=== PATIENT | female | born 1950 | race Caucasian/White ===

== ENCOUNTER 2016-12-21 09:10 | Inpatient (IN) ==
--- NOTE | 2016-12-20 21:32 | Discharge Summary ---
<Guilherme,Tamy E - Last Filed: 12/20/16 21:29> Date of Encounter: 12/20/16 - Discharge Diagnosis (1) Rotator cuff tear arthropathy of right shoulder Priority: Primary Status: Chronic (2) Psoriasis Priority: Secondary Status: Chronic (3) GERD (gastroesophageal reflux disease) Priority: Secondary Status: Chronic Qualifiers: Esophagitis presence: esophagitis presence not specified Qualified Code(s) : K21.9 - Gastro-esophageal reflux disease without esophagitis (4) Hyperlipidemia Priority: Secondary Status: Chronic Qualifiers: Hyperlipidemia type: unspecified Qualified Code(s): E78.5 - Hyperlipidemia , unspecified - Discharge Medications Home Medications: Cyclobenzaprine [Flexeril] 10 mg PO TID 03/28/15 [History] Levothyroxine [Synthroid] 12.5 mcg PO DAILY 03/28/15 [History] Esomeprazole Magnesium [Nexium] 20 mg PO BID 12/20/15 [History] Atorvastatin [Lipitor] 10 mg PO HS 08/26/16 [History] hydrOXYzine HCl [Hydroxyzine HCl] 25 mg PO BID PRN 08/26/16 [History] Albuterol Sulfate [Ventolin Hfa] 2 puff IH Q4-6H PRN 12/21/16 [History] Allergies/Adverse Reactions: Allergies hydrocodone [From Vicoprofen] Adverse Reaction (Intermediate, Verified 12/20/15 14:18) Vomiting benzocaine [From Cetacaine] Adverse Reaction (Unknown, Verified 12/20/15 14:18) oral lesion Butamben [From Cetacaine] Adverse Reaction (Unknown, Verified 12/20/15 14:18) oral lesion tetracaine [From Cetacaine] Adverse Reaction (Unknown, Verified 12/20/15 14:18) oral lesion acetaminophen [From Tylenol] Adverse Reaction (Verified 12/20/15 14:18) Vomiting ibuprofen Adverse Reaction (Verified 12/20/15 14:18) Vomiting lansoprazole [From Prevacid] Adverse Reaction (Verified 12/20/15 14:18) Diarrhea tramadol Adverse Reaction (Verified 12/20/15 14:18) Vomiting Primary care physician: Jarad Garcia MD - Patient Status Disposition: Home, Self-Care Condition: Good - Discharge Instructions Follow Up With: Jarad Garcia MD [Primary Care Provider] - - Hospital Course Hospital course: Ms. Snow is a 66 year old female - Time Spent with Patient Total time spent providing and/or coordinating discharge services: - VTE Documentation of Mechanical Device: Venous foot pump, device <Bogdan Virgen - Last Filed: 12/22/16 06:53> Date of Encounter: 12/22/16 Time of Encounter: 06:52 - Discharge Diagnosis (1) Hypothyroidism Priority: Secondary Status: Chronic Qualifiers: Hypothyroidism type: unspecified Qualified Code(s): E03.9 - Hypothyroidism , unspecified (2) Rotator cuff tear arthropathy of right shoulder Priority: Primary Status: Chronic (3) Psoriasis Priority: Secondary Status: Chronic (4) GERD (gastroesophageal reflux disease) Priority: Secondary Status: Chronic Qualifiers: Esophagitis presence: esophagitis presence not specified Qualified Code(s) : K21.9 - Gastro-esophageal reflux disease without esophagitis (5) Status post total replacement of right shoulder Priority: Primary Status: Acute (6) Hyperlipidemia Priority: Secondary Status: Chronic Qualifiers: Hyperlipidemia type: unspecified Qualified Code(s): E78.5 - Hyperlipidemia , unspecified Primary care physician: Jarad Garcia MD - Patient Status Functional capacity at discharge: uses cane/walker Overall status at discharge: patient is progressing back to baseline - Hospital Course Hospital course: Ms. Snow is a 66 year old female Status post right total shoulder replacement The patient had an uneventful postoperative course. They received antibiotics and physical therapy and were discharged in stable condition. There will follow-up in the office in 2 weeks. - Time Spent with Patient Total time spent providing and/or coordinating discharge services:
--- NOTE | 2016-12-20 21:35 | Physician Discharge Referral ---
ExtendedCare Referral Info Transfer To: [facility] Provider in Charge: Dr. Bogdan Virgen Institutional Level of Care: Skilled - Diagnosis (1) Status post total replacement of right shoulder Priority: Primary Status: Acute (2) Rotator cuff tear arthropathy of right shoulder Priority: Secondary Status: Chronic (3) Psoriasis Priority: Secondary Status: Chronic (4) GERD (gastroesophageal reflux disease) Priority: Secondary Status: Chronic (5) Hyperlipidemia Priority: Secondary Status: Chronic Prognosis: Good Aware of Diagnosis: Patient Aware of Prognosis: Patient - Transfer Medications Home Medications: Cyclobenzaprine [Flexeril] 10 mg PO TID 03/28/15 [History] Levothyroxine [Synthroid] 12.5 mcg PO DAILY 03/28/15 [History] Esomeprazole Magnesium [Nexium] 20 mg PO BID 12/20/15 [History] Atorvastatin [Lipitor] 10 mg PO HS 08/26/16 [History] hydrOXYzine HCl [Hydroxyzine HCl] 25 mg PO BID PRN 08/26/16 [History] Albuterol Sulfate [Ventolin Hfa] 2 puff IH Q4-6H PRN 12/21/16 [History] Allergies/Adverse Reactions: Allergies hydrocodone [From Vicoprofen] Adverse Reaction (Intermediate, Verified 12/20/15 14:18) Vomiting benzocaine [From Cetacaine] Adverse Reaction (Unknown, Verified 12/20/15 14:18) oral lesion Butamben [From Cetacaine] Adverse Reaction (Unknown, Verified 12/20/15 14:18) oral lesion tetracaine [From Cetacaine] Adverse Reaction (Unknown, Verified 12/20/15 14:18) oral lesion acetaminophen [From Tylenol] Adverse Reaction (Verified 12/20/15 14:18) Vomiting ibuprofen Adverse Reaction (Verified 12/20/15 14:18) Vomiting lansoprazole [From Prevacid] Adverse Reaction (Verified 12/20/15 14:18) Diarrhea tramadol Adverse Reaction (Verified 12/20/15 14:18) Vomiting - Respiratory Orders Smoking Cessation: Smoking cessation has been advised. For more information, call the [place] Tobacco Quit Line at 1-601-IVNL-NOW. - Ancillary Orders May use pressure relief devices daily prn, May go on JAYESH w/family/respon constitution party w /meds at nurse discretion PRN, May consult with Dentist, Counter Person, Self Contained Behavior Unit Teacher PRN - Rehabiliation Orders Rehab Potential: Good Rehab Orders: Evaluation for Physical Therapy, Evaluation for Occupational Therapy - Treatments Skin tear care topically daily PRN per policy List/Other: Opsite placed. Keep dressing intact until first follow up appointment. If > 50% saturated,notify offfice, remove dressing and place appropriate dressing back in place. Dressing is water resistant, not water-proof. OK to shower, but do not get dressing wet. PT/OT. NWB to affected upper extremity. Follow Shoulder Precautions x 6 weeks. Stay in brace during activity and at night. Remove brace during exercises. ICE and elevate extremity frequently throughout the day. - Diet Orders Regular CERTIFICATION: I certify that the transfer of the above named patient to an Extended Care Facility is necessary for the continuing treatment of the diagnosis listed. The above information is true and accurate reflection of patient's current condition. Confidential - Redisclosure prohibited without a patient's written consent.
--- NOTE | 2016-12-21 09:19 | History & Physical Report ---
Date of Encounter: 12/21/16 Time of Encounter: 09:18 24 Hour HP Update - Instructions Instructions: If the History and Physical is less than 30 days old and was completed prior to A.M. admission and or procedure and has NOT been updated on calendar day of procedure please complete this update prior to performing procedure. - Update Patient reports changes in Medical Condition: No Changes in examination, assessment, or condition: No Changes in Medication: No Preop tests/diagnostics Reviewed: Yes Surgery Remains Indicated: Yes Consent for Planned Operative Procedure(s) Verified: Yes - Pre-Operative Checklist Preoperative Checklist Indicated: No Prophylactic Antibiotic Ordered: Yes Is VTE Prophylaxis Indicated?: Yes
[2016-12-21] MEDS ORDERED: CeFAZolin Pre 2,000 MG/100 ML 2,000 MG/100 ML BAG IVPB ONE (09:34)
[2016-12-21] MEDS ORDERED: Lidocaine -MPF 1% 2 ML VIAL ID ONE (09:34)
[2016-12-21] MEDS ORDERED: Albuterol 2.5 MG/3 ML NEBULIZER IH ONE (09:34)
[2016-12-21] MEDS ORDERED: Famotidine 20 MG/2 ML VIAL IVP ONE (09:36)
[2016-12-21] MEDS ORDERED: Gabapentin 300 MG CAPSULE PO ONE (09:36)
[2016-12-21] MEDS ORDERED: Acetaminophen IV 1,000 MG/100 ML INFUS..BTL IVPB ONE (09:38)
[2016-12-21] MEDS ORDERED: Albuterol 2.5 MG/3 ML NEBULIZER ONE (09:40)
[2016-12-21] MEDS ORDERED: Ringers Solution, Lactated 1,000 ML IVC SCH ×3 (09:45→12:29)
[2016-12-21] MEDS ORDERED: *HR* Midazolam HCl 2 MG/2 ML VIAL ONE (09:56)
[2016-12-21] MEDS ORDERED: *HR* Propofol 200 MG/20 ML VIAL IVP ONE (09:56)
[2016-12-21] MEDS ORDERED: *HR* FentaNYL (PF) 100 MCG/2 ML VIAL ONE (09:56)
[2016-12-21] MEDS ORDERED: Lidocaine -MPF 2% 2 ML VIAL ONE (09:59)
--- NOTE | 2016-12-21 10:10 | Anesthesia Evaluation PreOp ---
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 12/20/15 [Rx] Esomeprazole Magnesium [Nexium] 20 mg PO BID 12/20/15 [History] Atorvastatin [Lipitor] 10 mg PO HS 08/26/16 [History] Bacitracin OINT [Ak-Tracin] 1 appl TP DAILY 08/26/16 [History] Calcipotriene [Dovonex] 1 appl TP BID 08/26/16 [History] Cholecalciferol (D-3) [Vitamin D] 5,000 unit PO DAILY 08/26/16 [History] Clobetasol Propionate [Temovate] 1 appl TP BID 08/26/16 [History] Multivitamin [Multi-Day Vitamins] 1 tab PO DAILY 08/26/16 [History] hydrOXYzine HCl [Hydroxyzine HCl] 25 mg PO TID 08/26/16 [History] OxyCODONE Immed Rel [Roxicodone 5 MG] 5 - 10 mg PO Q6HR PRN #40 tablet 12/20/16 [Rx] Allergies hydrocodone [From Vicoprofen] Adverse Reaction (Intermediate, Verified 12/20/15 14:18) Vomiting benzocaine [From Cetacaine] Adverse Reaction (Unknown, Verified 12/20/15 14:18) oral lesion Butamben [From Cetacaine] Adverse Reaction (Unknown, Verified 12/20/15 14:18) oral lesion tetracaine [From Cetacaine] Adverse Reaction (Unknown, Verified 12/20/15 14:18) oral lesion acetaminophen [From Tylenol] Adverse Reaction (Verified 12/20/15 14:18) Vomiting ibuprofen Adverse Reaction (Verified 12/20/15 14:18) Vomiting lansoprazole [From Prevacid] Adverse Reaction (Verified 12/20/15 14:18) Diarrhea tramadol Adverse Reaction (Verified 12/20/15 14:18) Vomiting - Meds/Allergy Pre-op Review Medications Reviewed: Yes Allergies Reviewed: Yes Beta Blockers on Current Med List: No Anesthesia Results - Labs Laboratory Tests 12/16/16 12/16/16 12:12 12:12 Hgb 12.9 Hct 37.7 Plt Count 298 Sodium 141 Potassium 3.8 BUN 11 Creatinine 0.90 - Imaging EKG: report reviewed (Sinus Tach) Additional studies: Stress Test Negative EF 70% Anesthesia Exam O2 Sat Height 1.61 m Height 1.61 m Height 1.61 m Weight 68.039 kg Weight 68.039 kg Weight 68.039 kg O2 Sat by Pulse Oximetry 99 O2 Sat by Pulse Oximetry 99 O2 Sat by Pulse Oximetry 99 Vital Signs Temp Pulse Resp BP Pulse Ox 97.9 F 100 18 135/77 99 12/21/16 09:23 12/21/16 09:23 12/21/16 09:23 12/21/16 09:23 12/21/16 09:23 Height: 5'3 Weight: 150 lbs NPO (# of Hours): MN Pain Scale: 0 - HEENT Pupil (Motor): Pupils equal, EOMI Mallampati: III Denture Type: Upper: Complete Oral Opening: Less than or equal to 3 - INSIDE SALES ADVISOR LOC: Oriented INSIDE SALES ADVISOR Motor: Normal RUE, Normal LUE, Normal RLE, Normal LLE, Normal Face INSIDE SALES ADVISOR Sensory: Normal: RUE, LUE, RLE, LLE, Face - Cardiac Rhythm: Regular Murmur: None JVD: No Carotid Bruit: No - Pulmonary Breath Sounds: bilateral Clear Respiratory Effort: Symmetrical Anesthesia Assess/Plan ASA Score: 2 Modified Nerissa Scale for Level of Consciousness: Cooperative, oriented, and tranquil Anesthetic Plan: General, Regional Monitoring Plan: Standard Monitors Recovery Plan: PACU (Discussed GA and RA, agrees to proceed)
[2016-12-21] MEDS ORDERED: ROPIVACAINE HCL/PF 0.5% 30 ML VIAL ONE (10:17)
--- NOTE | 2016-12-21 10:47 | Anesthesia Procedures ---
Date of Encounter: 12/21/16 Time of Encounter: 10:24 Procedures: Anesthesia - Nerve Block Procedure Date: 12/21/16 Time: 10:34 Allergies/Adv Reactions: see list Surgical Procedure: right total shoulder Checklist: Correct Patient Identifier, Correct procedure, History checked Correct side: Right Blood Thinner: No Monitor Applied: EKG, BP, Pulse Oximetry Supplemental Oxygen via Nasal Cannula (L/min): 2 Sedation: Versed (mg): 2 Sedation: Fentanyl (mcg): 0 Indication: Post Op Analgesia Block Type: Interscalene, Other (SCP, T2) Catheter placed: No Sterile Technique: Yes Ultrasound used: Yes Anatomy identified: Yes Visual spread of Local: Yes Neuro Stimulation: Yes (0.4) Nerve Stimulator Range: 0.2 - 0.4 mA Blood on Needle Aspiration: No Smooth Injection of Local: Yes Pain with Injection of Local: No Prep: Chlorhexadine Needle: 22 x 50 mm Stimuplex Local: Ropivacaine (15ml 0.5%, 15ml 0.25% bup plain, 5mg decadron), Other Volume (cc): 31 Number of Attempts: 1 Complications: None/effective block Vitals: vss, block per request
[2016-12-21] MEDS ORDERED: Ondansetron 4 MG/2 ML VIAL ONE (11:02)
[2016-12-21] MEDS ORDERED: Dexamethasone 4 MG/ML VIAL ONE (11:02)
[2016-12-21] MEDS ORDERED: *HR* Promethazine 25 MG/ML VIAL IVP PRN (11:16)
--- NOTE | 2016-12-21 11:34 | Orthopedic Operative Note ---
Date of procedure: 12/21/16 Pre-op diagnosis: Right shoulder cuff tear arthropathy Post-op diagnosis: same Procedure: Procedure: Right Total Shoulder Replacment Reverse, Estimated blood loss: 100 cc Hardware: Metal and polyethylene replacement: Arthrex small glenoid baseplate, 2 4.5 screws. 1 6.5 screw, 36+4 glenosphere, 7 humeral stem, poly insert 3 and 6 metal Exam Under anesthesia: Full motion and no instability Procedural Notes: Irreparable tear supraspinatus tendon grade 3 arthritic changes humeral head Operative procedure: The patient was brought to the operating room and placed on the operating room table. After general anesthesia was administered the operative shoulder was examined. Findings were noted. The patient was placed in the modified beachchair position. All pressure points were padded appropriately. And the head was stabilized in the neutral position. The operative extremity was prepped and draped in the sterile surgical fashion. The patient received IV antibiotics prior to skin incision. A standard deltopectoral approach was made to the operative shoulder. Incision was made to the skin and subcutaneous tissue,hemo stasis was obtained with Bovie cautery. Using careful blunt dissection the cephalic vein was identified and mobilized medially. The deltopectoral interval was developed and the clavipectoral fascia was incised. The subscap was released off the lesser tuberosity and tagged with #2 FiberWire suture subscap was irreparable. The humerus was dislocated patient noted to have irreparable tear supraspinatus tendon, and the humeral cut was made along the anatomic neck. Patient noted to have grade 3 changes humeral head. Anterior and posterior Bankart retractors were placed to expose the glenoid. The glenoid guide was seated and the centering hole was made. It was reamed with the appropriate reamer. A small baseplate was seated and secured with (2) 4.5 screws and one 6.5 screw. The baseplate was irrigated and dried and the 36+4 Glenosphere was seated and secured with the Hernandez taper. The Hernandez taper was tested and found to be secure the humerus was redislocated and prepared with the diaphyseal reamers, followed by a broaching process up to the appropriate size 7 in the patient's anatomic version. The metaphyseal reamer was then utilized. Trial reduction found the shoulder to be relocatable. Trial components were removed. The appropriate 7 stem was impacted in place in the patient's anatomic version. Trial reduction found the shoulder to be relocatable and stable with the appropriate 6 metal and 3 Kerline Trial component was removed and the implants were seated and secured shoulder was reduced. The shoulder had excellent motion and excellent stability and no evidence of dislocation. The deep tissue was irrigated with pulse irrigation. The PA closed the shoulder. The deltopectoral interval was closed with a running #1 PDS suture, subcutaneous tissue was irrigated and closed with 0 PDS suture, the skin was closed with Dermabond. The patient was placed in a sterile dressing, abduction brace and extubated. The patient was then transferred to the recovery room in stable condition. Anesthesia: SERA Surgeon: Bogdan Virgen Maori Physiotherapist: Tamy Vanegas Condition: stable Disposition: PACU
[2016-12-21] MEDS ORDERED: *HR* OxyCODONE Immed Rel 5 MG TABLET PO PRN (12:29)
[2016-12-21] MEDS ORDERED: hydrOXYzine pamoate 25 MG CAPSULE PO PRN (12:29)
[2016-12-21] MEDS ORDERED: Naloxone 0.4 MG/ML INJ IVP PRN (12:29)
[2016-12-21] MEDS ORDERED: *HR* HYDROmorphone (PF) 1 MG/ML SYRINGE IVP PRN (12:29)
[2016-12-21] MEDS ORDERED: Sennosides 8.6 MG TABLET PO PRN (12:29)
[2016-12-21] MEDS ORDERED: Ondansetron 4 MG/2 ML VIAL IVP PRN (12:29)
[2016-12-21 12:31] LABS: Hematocrit 36.5 % (35.3-44.9); Hemoglobin 12.2 g/dL (11.5-15.4)
--- NOTE | 2016-12-21 13:38 | Anesthesia Evaluation Post Op ---
Date of Encounter: 12/21/16 Time of Encounter: 13:15 - Vital Signs Vital Signs: Vital Signs/O2 Sat/Glucose, Most Current Temp Pulse Resp BP Pulse Ox 12/21/16 12:27 84 18 116/72 96 12/21/16 12:21 97.2 F L 88 16 127/74 94 12/21/16 12:11 86 18 133/72 96 12/21/16 12:01 85 20 127/89 97 12/21/16 11:51 97.4 F L 91 20 113/90 98 12/21/16 10:44 86 16 138/85 99 12/21/16 10:28 92 16 129/76 100 12/21/16 09:53 18 135/77 99 12/21/16 09:47 97.9 F 100 18 135/77 99 - Lungs Lungs: Clear Ascult./Percussion - Airway Airway: Non-obstructed - Cardiovascular Regular Rate - Mental Status Mental Status: Alert & Oriented, Answers Appropriately - Pain Pain Scale: 0 - Nausea Vomiting Nausea Vomiting: Not Present - Hydration Hydration: Ice chips - Discharge PostOp Status: Transfer Patient to floor
[2016-12-21] MEDS ORDERED: ceFAZolin 2,000 MG in D5% in Water 100 ML IVPB SCH (16:00)
[2016-12-21] MEDS: *HR* Enoxaparin 30 MG/0.3 ML SYRINGE SQ SCH (16:29)
[2016-12-21] MEDS ORDERED: *HR* Enoxaparin 30 MG/0.3 ML SYRINGE SQ SCH (18:00)
[2016-12-21] MEDS: *HR* OxyCODONE Immed Rel 5 MG TABLET PO PRN ×2 (19:42→23:55)
[2016-12-21] MEDS: ceFAZolin 2,000 MG in D5% in Water 100 ML IVPB SCH (20:26)
[2016-12-21] MEDS ORDERED: MOM Conc 10 ML UD.LIQ PO PRN (21:00)
[2016-12-21] MEDS ORDERED: Temazepam 15 MG CAPSULE PO PRN (21:00)
[2016-12-22] MEDS: ceFAZolin 2,000 MG in D5% in Water 100 ML IVPB SCH (03:07)
[2016-12-22] MEDS ORDERED: Levothyroxine 25 MCG TABLET PO SCH (06:30)
[2016-12-22] MEDS: *HR* Enoxaparin 30 MG/0.3 ML SYRINGE SQ SCH (06:52)
--- NOTE | 2016-12-22 06:54 | Orthopedics Progress Note ---
Date of Encounter: 12/22/16 Time of Encounter: 06:53 - Assessment and Plan (1) Hypothyroidism Current Visit: No Status: Chronic Qualifiers: Hypothyroidism type: unspecified Qualified Code(s): E03.9 - Hypothyroidism , unspecified (2) Rotator cuff tear arthropathy of right shoulder Current Visit: Yes Status: Chronic (3) Psoriasis Current Visit: Yes Status: Chronic (4) GERD (gastroesophageal reflux disease) Current Visit: Yes Status: Chronic Qualifiers: Esophagitis presence: esophagitis presence not specified Qualified Code(s) : K21.9 - Gastro-esophageal reflux disease without esophagitis (5) Status post total replacement of right shoulder Current Visit: Yes Status: Acute (6) Hyperlipidemia Current Visit: Yes Status: Chronic Qualifiers: Hyperlipidemia type: unspecified Qualified Code(s): E78.5 - Hyperlipidemia , unspecified Subjective Interval history: Patient was seen this morning doing well without complaints. Afebrile vital signs stable. Operative extremity: Neurovascularly intact Dressing clean dry and intact Calves nontender Assessment and plan: Continue with postoperative care Hematocrit 36 discharged today Objective Vital signs: Vital Signs Temp Pulse Resp BP Pulse Ox 12/22/16 04:09 97.8 F 100 16 143/68 93 12/22/16 00:23 97.9 F 110 16 131/75 94 12/21/16 19:13 97.6 F 116 16 161/73 97 12/21/16 15:32 97.6 F 86 16 137/84 98 12/21/16 14:45 97.6 F 97 14 127/71 98 12/21/16 13:40 97.7 F 93 14 133/71 97 12/21/16 13:10 97.6 F 91 14 137/72 96 12/21/16 12:27 84 18 116/72 96 12/21/16 12:21 97.2 F L 88 16 127/74 94 12/21/16 12:11 86 18 133/72 96 12/21/16 12:01 85 20 127/89 97 12/21/16 11:51 97.4 F L 91 20 113/90 98 12/21/16 10:44 86 16 138/85 99 12/21/16 10:28 92 16 129/76 100 12/21/16 09:53 18 135/77 99 12/21/16 09:47 97.9 F 100 18 135/77 99 12/21/16 09:23 97.9 F 100 18 135/77 99 Intake and Output 12/21/16 12/21/16 12/22/16 15:59 23:59 07:59 Intake Total 100 / 100 100 / 100 Output Total 600 / 600 550 / 550 Balance -500 / -500 -450 / -450 Intake: IV Fluids 100 / 100 100 / 100 Ancef Premix 2,000 MG/100 100 / 100 ML 2,000 mg In 100 ml @ 200 mls/hr IVPB PREOP ONE Rx#:[id number] Ancef 2,000 MG In 100 / 100 Dextrose 5% 100 ML @ 200 mls/hr IVPB Q8H MAURIZIO Rx#: [id number] Oral 0 / 0 Output: Urine 500 / 500 550 / 550 Estimated Blood Loss 100 / 100 Other: # Voids 1 1 Weight 68.039 kg 74.6 kg Patient Weight 12/22/16 23:59 Weight 74.6 kg - Labs CBC & BMP: 12/21/16 12:14 - VTE Documentation of Mechanical Device: Venous foot pump, device Consult Discharge Plan - Plan Referrals: Jarad Garcia MD [Primary Care Provider] -
[2016-12-22 07:15] VITALS: BP 138/91
[2016-12-22 07:35] LABS: Hematocrit 37.5 % (35.3-44.9); Hemoglobin 12.6 g/dL (11.5-15.4)
[2016-12-22] MEDS: *HR* OxyCODONE Immed Rel 5 MG TABLET PO PRN ×2 (08:48→14:27)
[2016-12-22] MEDS ORDERED: Ketorolac 15 MG/ML VIAL IVP ONE (14:37)
[2016-12-22] MEDS ORDERED: Ondansetron 4 MG/2 ML VIAL IVP ONE (14:39)
--- NOTE | 2016-12-22 16:03 | Physician Discharge Referral ---
ExtendedCare Referral Info Transfer To: [facility] Provider in Charge: Dr. Bogdan Virgen Institutional Level of Care: Skilled - Diagnosis (1) Status post total replacement of right shoulder Priority: Primary Status: Acute (2) Rotator cuff tear arthropathy of right shoulder Priority: Secondary Status: Chronic (3) Psoriasis Priority: Secondary Status: Chronic (4) GERD (gastroesophageal reflux disease) Priority: Secondary Status: Chronic (5) Hyperlipidemia Priority: Secondary Status: Chronic Expected Duration of Placement: 30 days Prognosis: Good Aware of Diagnosis: Patient Aware of Prognosis: Patient - Transfer Medications Home Medications: Cyclobenzaprine [Flexeril] 10 mg PO TID 03/28/15 [History] Levothyroxine [Synthroid] 12.5 mcg PO DAILY 03/28/15 [History] Esomeprazole Magnesium [Nexium] 20 mg PO BID 12/20/15 [History] Atorvastatin [Lipitor] 10 mg PO HS 08/26/16 [History] hydrOXYzine HCl [Hydroxyzine HCl] 25 mg PO BID PRN 08/26/16 [History] Albuterol Sulfate [Ventolin Hfa] 2 puff IH Q4-6H PRN 12/21/16 [History] Allergies/Adverse Reactions: Allergies hydrocodone [From Vicoprofen] Adverse Reaction (Intermediate, Verified 12/20/15 14:18) Vomiting benzocaine [From Cetacaine] Adverse Reaction (Unknown, Verified 12/20/15 14:18) oral lesion Butamben [From Cetacaine] Adverse Reaction (Unknown, Verified 12/20/15 14:18) oral lesion tetracaine [From Cetacaine] Adverse Reaction (Unknown, Verified 12/20/15 14:18) oral lesion acetaminophen [From Tylenol] Adverse Reaction (Verified 12/20/15 14:18) Vomiting ibuprofen Adverse Reaction (Verified 12/20/15 14:18) Vomiting lansoprazole [From Prevacid] Adverse Reaction (Verified 12/20/15 14:18) Diarrhea tramadol Adverse Reaction (Verified 12/20/15 14:18) Vomiting - Respiratory Orders Smoking Cessation: Smoking cessation has been advised. For more information, call the [place] Tobacco Quit Line at 9-276-GDUT-NOW. - Ancillary Orders May use pressure relief devices daily prn, May go on JAYESH w/family/respon alliance party w /meds at nurse discretion PRN, May consult with Dentist, Applications Support Engineer, Stroke Belt Sander Operator PRN - Mobility Orders Ambulate - Rehabiliation Orders Rehab Potential: Good Rehab Orders: Evaluation for Physical Therapy, Evaluation for Occupational Therapy CERTIFICATION: I certify that the transfer of the above named patient to an Extended Care Facility is necessary for the continuing treatment of the diagnosis listed. The above information is true and accurate reflection of patient's current condition. Confidential - Redisclosure prohibited without a patient's written consent.
== END 2016-12-22 16:07 | DRG 315 ==
LOC: SAMDAY 09:10 → 3NENU 12:30
PROVIDERS: ADMIT Orthopaedic Surgery; ATTEND Orthopaedic Surgery

== ENCOUNTER 2017-02-08 10:23 | Observation (INO) ==
[2017-02-08 10:55] LABS: Basophils % 0.5 %; Eosinophils # 0.1 K/mcL (0.0-0.6); Eosinophils % 1.3 %; Hematocrit 39.4 % (35.3-44.9); Immature Granulocytes % 0.3 % (0-4); Lymphocytes # 1.8 K/mcL (0.6-4.6); Lymphocytes % 23.4 %; Mean Corpuscular Hemoglobin 29.8 pg (28.0-33.3); Mean Corpuscular Volume 90.4 fL (83.0-100.0); Mean Platelet Volume 9.3 fL (9.4-12.4); Monocytes # 0.3 K/mcL (0.0-1.3); Monocytes % 4.4 %; Neutrophils # 5.3 K/mcL (1.6-8.9); Platelet Count 333 K/mcL (140-400); Red Blood Count 4.36 M/mcL (3.82-4.97); Red Cell Distribution Width 12.9 % (11.5-14.5); Segmented Neutrophils % 70.1 %
[2017-02-08 11:09] LABS: Alanine Aminotransferase 22 Units/L (0-55); Albumin 3.9 g/dL (3.5-5.0); Albumin/Globulin Ratio 1.3 (1.1-2.2); Alkaline Phosphatase 113 Units/L (38-126); Amylase 81 Units/L (25-125); Aspartate Amino Transferase 26 Units/L (5-34); BUN/Creatinine Ratio 11 (6-26); Bilirubin,Direct 0.2 mg/dL (0.0-0.5); Bilirubin,Indirect 0.1 mg/dL (0.0-1.2); Bilirubin,Total 0.3 mg/dL (0.2-1.2); Blood Urea Nitrogen 8 mg/dL (7-20); Calcium 9.9 mg/dL (8.6-10.8); Carbon Dioxide 24 mEq/L (19-29); Chloride 108 mEq/L (98-109); Glucose 130 mg/dL (70-99); Lipase 26 Units/L (8-78); Osmolality,Calculated 294 (280-300); Potassium 3.4 mEq/L (3.5-4.5); Sodium 142 mEq/L (136-145); Total Protein 6.9 g/dL (6.0-8.3); eGFR For African Americans > 60 (> 60); eGFR For Non-African Americans > 60 (> 60)
[2017-02-08] MEDS ORDERED: 0.9 % Sodium Chloride 1,000 ML IVC ONE (11:28)
[2017-02-08] MEDS ORDERED: Ondansetron 4 MG/2 ML VIAL IVP ONE ×2 (11:28→17:15)
[2017-02-08] MEDS ORDERED: *HR* HYDROmorphone (PF) 1 MG/ML SYRINGE IVP ONE (11:28)
--- NOTE | 2017-02-08 11:30 | Emergency Department Note ---
Disposition Clinical Impression: Appendicitis, acute Qualifiers: Acute appendicitis type: unspecified acute appendicitis type Qualified Code(s) : K35.80 - Unspecified acute appendicitis Disposition: Admitted As Inpatient Condition: Good Referrals: NONE,PCP [Primary Care Provider] - Forms: Work/School Release, ED Satisfaction Letter Abdominal Pain HPI - General Chief Complaint: ED Abdominal Pain Stated Complaint: ABD PAIN Time Seen by Provider: 02/08/17 11:03 Source: patient, EMS Mode of arrival: ambulatory Limitations: no limitations Nursing Notes Reviewed: Yes Vital Signs Reviewed: Yes - History of Present Illness Pt Subjective Complaint: abdominal pain Onset (ago): hour(s) (12) Consistency: constant Location: RLQ Pain Scale: 10 Quality: stabbing Radiation: none Migration to: no migration Improves with: nothing Worsens with: nothing Associated symptoms: Reports: nausea (She last ate at 8:30 PM yesterday). Denies: vomiting, fever, chills - Related Data Home Medications Medication Instructions Recorded Confirmed Cyclobenzaprine [Flexeril] 10 mg PO TID 03/28/15 12/21/16 Levothyroxine [Synthroid] 12.5 mcg PO DAILY 03/28/15 12/21/16 Esomeprazole Magnesium [Nexium] 20 mg PO BID 12/20/15 12/21/16 Atorvastatin [Lipitor] 10 mg PO HS 08/26/16 12/21/16 hydrOXYzine HCl [Hydroxyzine HCl] 25 mg PO BID PRN 08/26/16 12/21/16 Albuterol Sulfate [Ventolin Hfa] 2 puff IH Q4-6H PRN 12/21/16 12/21/16 Allergies Allergy/AdvReac Type Severity Reaction Status Date / Time hydrocodone [From Vicoprofen] AdvReac Intermediate Vomiting Verified 12/20/15 14 :18 benzocaine [From Cetacaine] AdvReac Unknown oral lesion Verified 12/20/15 14:18 Butamben [From Cetacaine] AdvReac Unknown oral lesion Verified 12/20/15 14:18 tetracaine [From Cetacaine] AdvReac Unknown oral lesion Verified 12/20/15 14:18 acetaminophen [From Tylenol] AdvReac Vomiting Verified 12/20/15 14:18 ibuprofen AdvReac Vomiting Verified 12/20/15 14:18 lansoprazole [From Prevacid] AdvReac Diarrhea Verified 12/20/15 14:18 tramadol AdvReac Vomiting Verified 12/20/15 14:18 All systems ED: reviewed and negative except as stated. 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 Psychiatric history: Reports: anxiety, depression - Social History Smoking status: Former smoker Alcohol use: Reports: rarely Drug use: Reports: none Physical Exam - General Limitations: no limitations General appearance: alert - Head Head exam: atraumatic, normocephalic, normal inspection - Eye Eye exam: Present: normal appearance, PERRL, EOMI - Expanded Eye Exam Pupils: Left: reactive - ENT ENT exam: normal exam, normal oropharynx, mucous membranes moist - Expanded ENT Exam External ear exam: Present: normal external inspection Mouth exam: Present: normal external inspection Teeth exam: Present: normal inspection Throat exam: Present: normal inspection - Neck Neck exam: Present: normal inspection, full ROM, trachea midline - Chest Chest inspection: Present: normal inspection, symmetric chest wall rise - Respiratory Respiratory exam: Present: normal lung sounds bilaterally - Cardiovascular Cardiovascular exam: Present: regular rate, normal rhythm, normal heart sounds - Abdominal Exam Abdominal exam: Present: soft, guarding. Absent: distention, rebound, rigidity Abdominal tenderness: Present: RLQ, severe - Extremities Exam Extremities exam: Present: normal inspection, full ROM. Absent: tenderness, pedal edema - Expanded Upper Extremity Exam Shoulder exam: Present: normal inspection, full ROM Arm exam: Present: normal inspection, full ROM Elbow exam: Present: normal inspection, full ROM Forearm/Wrist exam: Present: normal inspection, full ROM Hand exam: Present: normal inspection, full ROM Vascular exam: Normal: capillary refill, radial pulse - Expanded Lower Extremity Exam Hip/Pelvis exam: Present: normal inspection, full ROM Upper leg exam: Present: normal inspection, full ROM Knee exam: Present: normal inspection, full ROM Lower leg exam: Present: normal inspection, full ROM Ankle exam: Present: normal inspection, full ROM Foot/toe exam: Present: normal inspection, full ROM Neurovascular/Tendon exam: Absent: motor deficit, sensory deficit, tendon deficit - Back Exam Back exam: Present: normal inspection, full ROM. Absent: tenderness - Neurological Exam Neurological exam: Present: alert, oriented X3 - Expanded Neurological Exam Patient oriented to: Present: person, place, time Coma Scale Eye Opening: Spontaneous Coma Scale Motor Response: Obeys Commands Coma Scale Verbal Response: Oriented Coma Scale Total: 15 - Psychiatric Psychiatric exam: Present: normal affect, normal mood - Skin Skin exam: Present: warm, dry, intact, normal color Course Vital Signs Temperature 97.4 F L 02/08/17 10:27 Pulse Rate 94 02/08/17 10:27 Respiratory Rate 16 02/08/17 10:27 Blood Pressure 131/92 02/08/17 10:27 O2 Sat by Pulse Oximetry 95 02/08/17 10:27 Temperature 97.4 F L 02/08/17 10:27 Pulse Rate 94 02/08/17 10:27 Respiratory Rate 16 02/08/17 10:27 Blood Pressure 131/92 02/08/17 10:27 O2 Sat by Pulse Oximetry 95 02/08/17 10:27 Oxygen Delivery Oxygen Delivery Room Air Abdominal Pain - Medical Records Medical records reviewed: Yes I reviewed the patient's medical records. - Lab Data Lab results reviewed: Yes I reviewed the patient's lab results. Result diagrams: 02/08/17 10:46 02/08/17 10:46 Lab Results 02/08/17 02/08/17 Range/Units 10:46 10:46 WBC 7.6 (4.3-11.1) K/mcL RBC 4.36 (3.82-4.97) M/mcL Hgb 13.0 (11.5-15.4) g/dL Hct 39.4 (35.3-44.9) % MCV 90.4 (83.0-100.0) fL MCH 29.8 (28.0-33.3) pg MCHC 33.0 (31.6-35.5) g/dL RDW 12.9 (11.5-14.5) % Plt Count 333 (140-400) K/mcL MPV 9.3 L (9.4-12.4) fL Immature Gran % 0.3 (0-4) % Seg Neutrophils % 70.1 % Lymphocytes % 23.4 % Monocytes % 4.4 % Eosinophils % 1.3 % Basophils % 0.5 % Neutrophils # 5.3 (1.6-8.9) K/mcL Lymphocytes # 1.8 (0.6-4.6) K/mcL Monocytes # 0.3 (0.0-1.3) K/mcL Eosinophils # 0.1 (0.0-0.6) K/mcL Basophils # 0.0 (0.0-0.2) K/mcL Sodium 142 (136-145) mEq/L Potassium 3.4 L (3.5-4.5) mEq/L Chloride 108 (98-109) mEq/L Carbon Dioxide 24 (19-29) mEq/L BUN 8 (7-20) mg/dL Creatinine 0.75 (0.57-1.11) mg/dL Est GFR ( Amer) > 60 (> 60) Est GFR (Non-Af Amer) > 60 (> 60) BUN/Creatinine Ratio 11 (6-26) Glucose 130 H (70-99) mg/dL Calculated Osmolality 294 (280-300) Calcium 9.9 (8.6-10.8) mg/dL Total Bilirubin 0.3 (0.2-1.2) mg/dL Direct Bilirubin 0.2 (0.0-0.5) mg/dL Indirect Bilirubin 0.1 (0.0-1.2) mg/dL AST 26 (5-34) Units/L ALT 22 (0-55) Units/L Alkaline Phosphatase 113 (38-126) Units/L Serum Total Protein 6.9 (6.0-8.3) g/dL Albumin 3.9 (3.5-5.0) g/dL Globulin 3.0 (2.4-3.5) g/dL Albumin/Globulin Ratio 1.3 (1.1-2.2) Amylase 81 (25-125) Units/L Lipase 26 (8-78) Units/L - Radiology Data Radiology results reviewed: Yes I reviewed the patient's radiology results.
[2017-02-08 13:06] LABS: Bilirubin,Urine Negative (Negative); Blood,Urine Negative (Negative); Clarity,Urine Cloudy (Clear); Color,Urine Yellow (Yellow); Glucose,Urine (UA) Normal (Normal); Ketones,Urine Negative (Negative); Leukocyte Esterase,Urine Moderate (Negative); Nitrite,Urine Negative (Negative); Protein,Urine Negative (Neg-Trace); Specific Gravity,Urine 1.017 (1.010-1.025); Urobilinogen,Urine Normal (Normal)
[2017-02-08 13:08] LABS: Bacteria,Urine None Seen per hpf (None-Few); Hyaline Casts,Urine None Seen per lpf (None-Few); RBC,Urine 0-3 per hpf (0-3); WBC,Urine 0-3 per hpf (0-3)
[2017-02-08 13:29] LABS: Squamous Epithelial Cell,Urine Few per lpf (None-Few)
--- NOTE | 2017-02-08 14:47 | General Surg History&Physical ---
<Audrey Hackett - Last Filed: 02/08/17 14:45> Date of Encounter: 02/08/17 Time of Encounter: 14:30 Assessment and Plan (1) Appendicitis, acute Current Visit: Yes Status: Acute The assessment and plan as outlined above was discussed with the patient and/or family members who expressed understanding and agreement. All questions were answered. Nothing by mouth IV fluids IV antibiotics- Zosyn Supportive care and pain control Risks, benefits, alternatives, expected outcomes have been reviewed with the patient and she is in agreement to proceed to the operating room for laparoscopic appendectomy with Dr. Wheat in the next 24 hours IS every 1 hour while awake Ambulatory hallways 3 times a day PPI therapy daily Qualifiers: Acute appendicitis type: with localized peritonitis Qualified Code(s): K35.3 - Acute appendicitis with localized peritonitis (2) Hypothyroidism Current Visit: No Status: Chronic The assessment and plan as outlined above was discussed with the patient and/or family members who expressed understanding and agreement. All questions were answered. Continue home dose of Synthroid Qualifiers: Hypothyroidism type: unspecified Qualified Code(s): E03.9 - Hypothyroidism , unspecified (3) Anxiety Current Visit: No Status: Chronic The assessment and plan as outlined above was discussed with the patient and/or family members who expressed understanding and agreement. All questions were answered. Continue home dose of hydroxyzine (4) Psoriasis Current Visit: No Status: Chronic The assessment and plan as outlined above was discussed with the patient and/or family members who expressed understanding and agreement. All questions were answered. (5) GERD (gastroesophageal reflux disease) Current Visit: No Status: Chronic The assessment and plan as outlined above was discussed with the patient and/or family members who expressed understanding and agreement. All questions were answered. PPI therapy daily Qualifiers: Esophagitis presence: esophagitis presence not specified Qualified Code(s) : K21.9 - Gastro-esophageal reflux disease without esophagitis (6) Hyperlipidemia Current Visit: No Status: Chronic The assessment and plan as outlined above was discussed with the patient and/or family members who expressed understanding and agreement. All questions were answered. Qualifiers: Hyperlipidemia type: unspecified Qualified Code(s): E78.5 - Hyperlipidemia , unspecified (7) DVT prophylaxis Current Visit: No Status: Acute The assessment and plan as outlined above was discussed with the patient and/or family members who expressed understanding and agreement. All questions were answered. EPCDs to bilateral lateral lower extremities for DVT prophylaxis Ambulate hallways 3 times a day for DVT prophylaxis History of Present Illness Chief complaint: Abdominal pain with associated nausea and vomiting HPI: Ms. Snow is a 66 year old female who presents to the emergency department with complaints of right-sided abdominal pain with associated nausea and vomiting. She states that her pain started at midnight last night and was mild and intermittent. She states that she went to bed and then was awoken at 4:30 this morning with increased right lower quadrant pain which was constant. She states that the pain was followed by diarrhea and multiple episodes of nausea and vomiting. She reports chills and states that she did not check her temperature. She reports multiple episodes of diarrhea but denies any melena or hematochezia. She states that she vomited on multiple occasions but denies any hematemesis or coffee-ground emesis. Denies any difficulty with urination. Denies any shortness of breath or chest pain. She has never experienced any pain like this in the past. She has had a CAT scan which shows evidence of appendicitis. The patient will be admitted to the hospital for further workup and treatment Past Med Surg Social Fam HX - Past Medical History Source: patient Medical history: arthritis, fibromyalgia, GERD, hyperlipidemia, hypertension, thyroid disease (Hypothyroidism), other (Headaches, cervical stenosis, psoriasis , psoriatic arthritis, cervical degenerative disc disease, fibromyalgia, vitamin D deficiency, osteoarthritis) Psychiatric history: anxiety, depression - Past Surgical History Surgical History: breast surgery (right breast excision (benign)), hip replacement (right), knee replacement (left and subsequent revision), orthopedic , other (bilateral shoulder replacements, cervical spine surgery), other (C- section, right salingoectomy) - Social History Smoking Status: Former smoker Smokeless Tobacco Status: No Alcohol use: rarely Drug use: none Current living situation: Home - Independent Activity Level: Independent ambulation - Family History Mother Living Status: Age at : 76 Cause of : kidney failure Hx Family Cardiac Disorders: Yes Hx Family Endocrine Disorder: Yes (diabetes mellitus, kidney failure on dialysis ) Father Adopted: No Living Status: Age at : 83 Hx Family Cardiac Disorders: Yes Hx Family Endocrine Disorder: Yes (Diabetes Mellitus) Medications and Allergies Cyclobenzaprine [Flexeril] 10 mg PO TID 03/28/15 [History] Levothyroxine [Synthroid] 12.5 mcg PO DAILY 03/28/15 [History] Esomeprazole Magnesium [Nexium] 20 mg PO BID 12/20/15 [History] Atorvastatin [Lipitor] 10 mg PO HS 08/26/16 [History] hydrOXYzine HCl [Hydroxyzine HCl] 25 mg PO BID PRN 08/26/16 [History] Albuterol Sulfate [Ventolin Hfa] 2 puff IH Q4-6H PRN 12/21/16 [History] Cholecalciferol (D-3) [Vitamin D] 4,000 unit PO DAILY 02/08/17 [History] 3 Allergy/AdvReac Type Severity Reaction Status Date / Time hydrocodone [From Vicoprofen] AdvReac Intermediate Vomiting Verified 12/20/15 14 :18 benzocaine [From Cetacaine] AdvReac Unknown oral lesion Verified 12/20/15 14:18 Butamben [From Cetacaine] AdvReac Unknown oral lesion Verified 12/20/15 14:18 tetracaine [From Cetacaine] AdvReac Unknown oral lesion Verified 12/20/15 14:18 acetaminophen [From Tylenol] AdvReac Vomiting Verified 12/20/15 14:18 ibuprofen AdvReac Vomiting Verified 12/20/15 14:18 lansoprazole [From Prevacid] AdvReac Diarrhea Verified 12/20/15 14:18 tramadol AdvReac Vomiting Verified 12/20/15 14:18 Review of Systems All systems PM: reviewed and no additional remarkable complaints except as stated (in the HPI) All systems PM: A 10-system review of systems was performed and is negative for pertinent findings except as documented above in the HPI. General Surgery Exam Initial Vital Signs Temp Pulse Resp BP Pulse Ox 97.4 F L 94 16 131/92 95 02/08/17 10:27 02/08/17 10:27 02/08/17 10:27 02/08/17 10:27 02/08/17 10:27 - General physical appearance well developed, well nourished, no distress, moderate pain - Eyes normal ocular movement - ENT normal mucosa, atraumatic, normocephalic - Neck trachea midline - Respiratory normal respiratory effort, clear to auscultation - Cardiovascular Cardiovascular exam: Present: RRR - Abdomen Abdomen general surgery: Present: bowel sounds present, soft, tender Abdominal Tenderness: Present: RLQ - Integumentary Integumentary general surgery: Present: warm and dry, rash (psoriasis) - Neurologic Present: CN 2-12 grossly intact - Musculoskeletal Present: normal gait, normal posture - Psychiatric Psychiatric general surgery: Present: appropriate, oriented to person, oriented to place, oriented to time, speech is normal, memory intact Results - Labs 02/08/17 10:46 02/08/17 10:46 Abnormal lab results MPV 9.3 fL (9.4-12.4) L 02/08/17 10:46 Potassium 3.4 mEq/L (3.5-4.5) L 02/08/17 10:46 Glucose 130 mg/dL (70-99) H 02/08/17 10:46 Urine Clarity Cloudy (Clear) A 02/08/17 13:00 Ur Leukocyte Esterase Moderate (Negative) H 02/08/17 13:00 Ur Culture Indicated? YES (NO) A 02/08/17 13:00 Diabetes panel 02/08/17 Range/Units 10:46 Sodium 142 (136-145) mEq/L Potassium 3.4 L (3.5-4.5) mEq/L Chloride 108 (98-109) mEq/L Carbon Dioxide 24 (19-29) mEq/L BUN 8 (7-20) mg/dL Creatinine 0.75 (0.57-1.11) mg/dL Glucose 130 H (70-99) mg/dL Calcium 9.9 (8.6-10.8) mg/dL AST 26 (5-34) Units/L ALT 22 (0-55) Units/L Alkaline Phosphatase 113 (38-126) Units/L Albumin 3.9 (3.5-5.0) g/dL Calcium panel 02/08/17 Range/Units 10:46 Calcium 9.9 (8.6-10.8) mg/dL Albumin 3.9 (3.5-5.0) g/dL Pituitary panel 02/08/17 Range/Units 10:46 Sodium 142 (136-145) mEq/L Potassium 3.4 L (3.5-4.5) mEq/L Chloride 108 (98-109) mEq/L Carbon Dioxide 24 (19-29) mEq/L BUN 8 (7-20) mg/dL Creatinine 0.75 (0.57-1.11) mg/dL Glucose 130 H (70-99) mg/dL Calcium 9.9 (8.6-10.8) mg/dL Adrenal panel 02/08/17 Range/Units 10:46 Sodium 142 (136-145) mEq/L Potassium 3.4 L (3.5-4.5) mEq/L Chloride 108 (98-109) mEq/L Carbon Dioxide 24 (19-29) mEq/L BUN 8 (7-20) mg/dL Creatinine 0.75 (0.57-1.11) mg/dL Glucose 130 H (70-99) mg/dL Calcium 9.9 (8.6-10.8) mg/dL Total Bilirubin 0.3 (0.2-1.2) mg/dL AST 26 (5-34) Units/L ALT 22 (0-55) Units/L Alkaline Phosphatase 113 (38-126) Units/L Albumin 3.9 (3.5-5.0) g/dL All other labs normal. - Imaging CT scan - abdomen: report reviewed CT scan - pelvis: report reviewed Additional studies: Abdomen/Pelvis CT 02/08/17 11:42 IMPRESSION: 1. Distended hyperemic appendix, measuring up to 9 mm in diameter with mild periappendiceal stranding/inflammation. Please correlate with clinical symptoms as this may represent an early appendicitis. D/ / 02/08/2017 13:30:41 Foreign Pak MD / bcarter Interpreting Provider: Foreign Pak MD - Attending Attestation For this encounter, I have reviewed the FUSE CUTTER or PA documentation, treatment plan, and medical decision making; and I have had face to face time with this patient. <Estefany Wheat - Last Filed: 02/08/17 17:52> Date of Encounter: 02/08/17 Assessment and Plan (1) Appendicitis, acute Current Visit: Yes Status: Acute The assessment and plan as outlined above was discussed with the patient and/or family members who expressed understanding and agreement. All questions were answered. Qualifiers: Acute appendicitis type: with localized peritonitis Qualified Code(s): K35.3 - Acute appendicitis with localized peritonitis History of Present Illness HPI: Ms. Snow is a 66 year old female Review of Systems All systems PM: A 10-system review of systems was performed and is negative for pertinent findings except as documented above in the HPI. General Surgery Exam Initial Vital Signs Temp Pulse Resp BP Pulse Ox 97.4 F L 94 16 131/92 95 02/08/17 10:27 02/08/17 10:27 02/08/17 10:27 02/08/17 10:27 02/08/17 10:27 Results - Labs 02/08/17 10:46 02/08/17 10:46 Abnormal lab results MPV 9.3 fL (9.4-12.4) L 02/08/17 10:46 Potassium 3.4 mEq/L (3.5-4.5) L 02/08/17 10:46 Glucose 130 mg/dL (70-99) H 02/08/17 10:46 Urine Clarity Cloudy (Clear) A 02/08/17 13:00 Ur Leukocyte Esterase Moderate (Negative) H 02/08/17 13:00 Ur Culture Indicated? YES (NO) A 02/08/17 13:00 All other labs normal. - Attending Attestation I have personally performed a face to face evaluation on this patient. I have reviewed and agree with the care plan. History and Exam by me shows:
--- NOTE | 2017-02-08 15:25 | Anesthesia Evaluation PreOp ---
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 Other Medical History: Thyroid (hypothyroid), GERD, Other (anxiety, psoriasis) Anesthesia History: No Prior Anesthetic Complications, Past Anesthesia (right KAM, left TKA, right TSA (done 12/28), left TSA, tubla, C-spine, breast excision) : No Alcohol Use: rarely Drug use: none Medications and Allergies Cyclobenzaprine [Flexeril] 10 mg PO TID 03/28/15 [History] Levothyroxine [Synthroid] 12.5 mcg PO DAILY 03/28/15 [History] Esomeprazole Magnesium [Nexium] 20 mg PO BID 12/20/15 [History] Atorvastatin [Lipitor] 10 mg PO HS 08/26/16 [History] hydrOXYzine HCl [Hydroxyzine HCl] 25 mg PO BID PRN 08/26/16 [History] Albuterol Sulfate [Ventolin Hfa] 2 puff IH Q4-6H PRN 12/21/16 [History] Cholecalciferol (D-3) [Vitamin D] 4,000 unit PO DAILY 02/08/17 [History] 3 Allergy/AdvReac Type Severity Reaction Status Date / Time hydrocodone [From Vicoprofen] AdvReac Intermediate Vomiting Verified 12/20/15 14 :18 benzocaine [From Cetacaine] AdvReac Unknown oral lesion Verified 12/20/15 14:18 Butamben [From Cetacaine] AdvReac Unknown oral lesion Verified 12/20/15 14:18 tetracaine [From Cetacaine] AdvReac Unknown oral lesion Verified 12/20/15 14:18 acetaminophen [From Tylenol] AdvReac Vomiting Verified 12/20/15 14:18 ibuprofen AdvReac Vomiting Verified 12/20/15 14:18 lansoprazole [From Prevacid] AdvReac Diarrhea Verified 12/20/15 14:18 tramadol AdvReac Vomiting Verified 12/20/15 14:18 - Meds/Allergy Pre-op Review Medications Reviewed: Yes Allergies Reviewed: Yes Beta Blockers on Current Med List: No Anesthesia Results - Labs 02/08/17 10:46 02/08/17 10:46 - Imaging Additional studies: negative stress with EF 70% Anesthesia Exam Selected Entries 02/08/17 14:25 02/08/17 15:07 Pulse Rate 103 Respiratory Rate 18 Blood Pressure 114/56 O2 Sat by Pulse Oximetry 99 Height: 63in Weight: 150lbs - HEENT Pupil (Motor): EOMI Mallampati: III Teeth: Edentulous (upper) Oral Opening: Less than or equal to 3 - PROFESSOR OF SURGERY LOC: Oriented PROFESSOR OF SURGERY Motor: Normal RUE, Normal LUE, Normal RLE, Normal LLE, Normal Face PROFESSOR OF SURGERY Sensory: Normal: RUE, LUE, RLE, LLE, Face - Cardiac Rhythm: Regular Murmur: None - Pulmonary Breath Sounds: bilateral Clear Respiratory Effort: Symmetrical Anesthesia Assess/Plan ASA Score: 3 Modified Westwood Scale for Level of Consciousness: Cooperative, oriented, and tranquil Anesthetic Plan: General Monitoring Plan: Standard Monitors Recovery Plan: PACU (discussed risks of GA, questions answered and agrees to proceed.)
[2017-02-08] MEDS ORDERED: Piperacillin/Tazobactam 3.375 GM in D5% in Water (Mini-Bag+) 100 ML IVPB SCH (16:00)
[2017-02-08] MEDS ORDERED: *HR* Propofol 200 MG/20 ML VIAL IVP ONE (16:36)
[2017-02-08] MEDS ORDERED: *HR* Succinylcholine 200 MG/10 ML VIAL IVP ONE (16:36)
[2017-02-08] MEDS ORDERED: Lidocaine -MPF 4% 5 ML AMPUL ONE (16:36)
[2017-02-08] MEDS ORDERED: *HR* Midazolam HCl 2 MG/2 ML VIAL ONE (16:36)
[2017-02-08] MEDS ORDERED: Lidocaine -MPF 2% 2 ML VIAL ONE (16:36)
[2017-02-08] MEDS ORDERED: *HR* FentaNYL (PF) 100 MCG/2 ML VIAL ONE (16:36)
[2017-02-08] MEDS ORDERED: *HR* Rocuronium Bromide 50 MG/5 ML VIAL ONE (16:36)
[2017-02-08] MEDS ORDERED: *HR* Promethazine 25 MG/ML VIAL IVP PRN (17:15)
[2017-02-08] MEDS ORDERED: *HR* HYDROmorphone (PF) 1 MG/ML SYRINGE IVP PRN (17:15)
[2017-02-08] MEDS ORDERED: Ondansetron 4 MG/2 ML VIAL ONE (17:17)
[2017-02-08] MEDS ORDERED: Dexamethasone 4 MG/ML VIAL ONE (17:17)
[2017-02-08] MEDS ORDERED: *HR* Labetalol 20 MG/4 ML SYRINGE IVP ONE (17:28)
[2017-02-08] MEDS ORDERED: Neostigmine Methylsulfate 3 MG/3 ML SYRINGE ONE (17:46)
--- NOTE | 2017-02-08 17:50 | Operative Note ---
Date of procedure: 02/08/17 Pre-op diagnosis: acute appendicitis Post-op diagnosis: same Procedure: Laparoscopic appendectomy Complications: none immediate Anesthesia: GETA, local Local Anesthetics: 0.5% Sensorcaine HCL SubQ (cc) Surgeon: Estefany Wheat Estimated blood loss (cc): 20 Specimen: appendix Condition: stable Disposition: PACU Procedure in Detail: The patient was brought into the operating suite and placed supine on the operating table. Sign-in was performed and everyone was in agreement. Anesthesia was induced and patient was endotracheally intubated by anesthesia without incident. An OG tube was placed by anesthesia. The abdomen was prepped and draped in the usual sterile fashion. A timeout was performed and again everyone was in agreement. A supraumbilical incision was made through the skin and the subcutaneous tissue with an 11 blade. Towel clamps were placed on either side of the umbilicus for retraction. S-retractors were used to dissect down to the anterior abdominal wall linea alba fascia. A Veress needle was placed into this incision and a water drop test confirmed placement and the abdomen was insufflated. We then entered the abdomen with the 5 mm 0 degree laparoscope on a 5 mm X-seven trocar. The area under entry was visualized and there was no bleeding and no apparent bowel injury. We placed a suprapubic 5 mm port under direct visualization after first incising the skin with an 11 blade. The laparoscope was placed through this and we exchanged the supraumbilical port for a 12 mm port under direct visualization. We then placed another 5 mm port in the left lower quadrant position under direct visualization after first incising the skin with an 11 blade. The patient was placed in slight Trendelenburg left side down position. The cecum was located as was the appendix. The appendix was grasped and retracted anteriorly and caudally with a laparoscopic [place]. A [place] was used to dissect between the mesoappendix and the appendix at the base of the cecum. The mesoappendix was transected with a laparoscopic flex-ex ETS stapler using a white load. The appendix was transected at the base of the cecum with the same stapler utilizing a white load. The appendix was placed in a laparoscopic Endo Catch bag and removed via the supraumbilical incision site. Both staple lines were evaluated and there was bleeding from the mesoappendix staple line and an area of retroperitoneaum ~1cm below staple line. This stopped after one 5mm metal hemoclip was placed and surgicel against the site. The surgicel was then removed and a small piece trimmed (~2cm) and placed at the site of previous bleeding. The area was irrigated with sterile saline which was then suctioned free from the abdomen. The insufflation was suctioned free from the abdomen and all trochars removed. We closed the abdominal wall at the supraumbilical incision site with an 0 Vicryl [id number] stitch. A 30 cc of 0.5% Marcaine was injected subcutaneously at the 3 port sites. The skin at the two 5 mm port sites was closed with 4-0 Monocryl interrupted subcuticular stitches. The skin at the supraumbilical incision site was closed with a 4-0 Monocryl running subcuticular stitch. Steri-Strips were applied to the wounds. The patient was extubated in the OR and tolerated the procedure well and was taken to PACU after all lap and instrument counts were correct at the end of the case.
[2017-02-08] MEDS ORDERED: Famotidine 20 MG/2 ML VIAL IVP SCH (18:00)
--- NOTE | 2017-02-08 19:05 | Anesthesia Evaluation Post Op ---
Date of Encounter: 02/08/17 Time of Encounter: 19:05 - Vital Signs Vital Signs: Last Vital Signs Temp 97.4 F L 02/08/17 18:54 Pulse 54 02/08/17 18:54 Resp 16 02/08/17 18:54 BP 146/75 02/08/17 18:54 Pulse Ox 99 02/08/17 18:54 - Lungs Lungs: Clear Ascult./Percussion - Airway Airway: Non-obstructed - Cardiovascular Regular Rate - Mental Status Mental Status: Alert & Oriented, Answers Appropriately - Pain Pain Scale: 5 - Nausea Vomiting Nausea Vomiting: Not Present - Hydration Hydration: NPO - Discharge PostOp Status: Transfer Patient to floor
[2017-02-08] MEDS ORDERED: *HR* OxyCODONE/APAP 5/325 TABLET PO PRN (19:25)
[2017-02-08] MEDS ORDERED: 0.9 % Sodium Chloride 1,000 ML IVC SCH (19:25)
[2017-02-08] MEDS ORDERED: Naloxone 0.4 MG/ML INJ IVP PRN (19:25)
[2017-02-08] MEDS: *HR* Promethazine 25 MG/ML VIAL IVP PRN (19:40)
[2017-02-08] MEDS: *HR* HYDROmorphone (PF) 1 MG/ML SYRINGE IVP PRN (19:40)
[2017-02-08] MEDS: Ipratropium/Albuterol Neb 3 ML IH SCH (20:52)
[2017-02-08] MEDS: 0.9 % Sodium Chloride 1,000 ML IVC SCH (21:48)
[2017-02-08] MEDS: Pantoprazole 40 MG VIAL IVP SCH (21:48)
[2017-02-08] MEDS: *HR* OxyCODONE Immed Rel 5 MG TABLET PO PRN (22:47)
[2017-02-09] MEDS ORDERED: Piperacillin/Tazobactam 3.375 GM in D5% in Water (Mini-Bag+) 100 ML IVPB SCH
[2017-02-09] MEDS: Ipratropium/Albuterol Neb 3 ML IH SCH ×7 (00:14→23:47)
[2017-02-09] MEDS: Ondansetron 4 MG/2 ML VIAL IVP PRN ×3 (00:15→09:16)
[2017-02-09] MEDS: *HR* HYDROmorphone (PF) 1 MG/ML SYRINGE IVP PRN ×4 (00:17→21:13)
[2017-02-09] MEDS: *HR* Promethazine 25 MG/ML VIAL IVP PRN ×2 (02:33→21:00)
[2017-02-09 04:35] LABS: Basophils % 0.1 %; Hematocrit 38.8 % (35.3-44.9); Hemoglobin 12.7 g/dL (11.5-15.4); Immature Granulocytes % 0.3 % (0-4); Lymphocytes # 1.4 K/mcL (0.6-4.6); Mean Corpuscular HGB Conc 32.7 g/dL (31.6-35.5); Mean Corpuscular Hemoglobin 29.3 pg (28.0-33.3); Mean Corpuscular Volume 89.6 fL (83.0-100.0); Mean Platelet Volume 9.4 fL (9.4-12.4); Monocytes # 0.2 K/mcL (0.0-1.3); Monocytes % 3.1 %; Neutrophils # 6.1 K/mcL (1.6-8.9); Platelet Count 358 K/mcL (140-400); Red Blood Count 4.33 M/mcL (3.82-4.97); Red Cell Distribution Width 13.2 % (11.5-14.5); Segmented Neutrophils % 78.5 %
[2017-02-09 04:50] LABS: BUN/Creatinine Ratio 10 (6-26); Blood Urea Nitrogen 7 mg/dL (7-20); Calcium 9.2 mg/dL (8.6-10.8); Carbon Dioxide 22 mEq/L (19-29); Chloride 107 mEq/L (98-109); Glucose 140 mg/dL (70-99); Osmolality,Calculated 286 (280-300); Potassium 3.7 mEq/L (3.5-4.5); Sodium 138 mEq/L (136-145); eGFR For African Americans > 60 (> 60); eGFR For Non-African Americans > 60 (> 60)
[2017-02-09] MEDS: Levothyroxine 25 MCG TABLET PO SCH (06:34)
[2017-02-09] MEDS: Pantoprazole 40 MG VIAL IVP SCH ×2 (08:01→21:00)
[2017-02-09] MEDS: 0.9 % Sodium Chloride 1,000 ML IVC SCH ×2 (08:01→17:27)
--- NOTE | 2017-02-09 09:51 | Discharge Summary ---
<Estefany Wheat - Last Filed: 02/09/17 09:48> Date of Encounter: 02/09/17 Time of Encounter: 09:49 - Discharge Diagnosis (1) Appendicitis, acute Priority: Primary Status: Acute Qualifiers: Acute appendicitis type: with localized peritonitis Qualified Code(s): K35.3 - Acute appendicitis with localized peritonitis - Discharge Medications Prescriptions: OxyCODONE ER (12 HR) [OxyCONTIN] 10 mg PO Q12HR #14 tab.er.12h Docusate Sodium [Colace] 100 mg PO BID #30 capsule Ibuprofen 800 mg PO Q8H PRN #60 tablet PRN Reason: Pain Ondansetron ODT [Zofran ODT] 4 mg PO Q4H PRN #30 tab.rapdis PRN Reason: Nausea Home Medications: Cyclobenzaprine [Flexeril] 10 mg PO TID 03/28/15 [History] Levothyroxine [Synthroid] 12.5 mcg PO DAILY 03/28/15 [History] Esomeprazole Magnesium [Nexium] 20 mg PO BID 12/20/15 [History] Atorvastatin [Lipitor] 10 mg PO HS 08/26/16 [History] hydrOXYzine HCl [Hydroxyzine HCl] 25 mg PO BID PRN 08/26/16 [History] Albuterol Sulfate [Ventolin Hfa] 2 puff IH Q4-6H PRN 12/21/16 [History] Cholecalciferol (D-3) [Vitamin D] 4,000 unit PO DAILY 02/08/17 [History] Docusate Sodium [Colace] 100 mg PO BID #30 capsule 02/10/17 [Rx] Ibuprofen 800 mg PO Q8H PRN #60 tablet 02/10/17 [Rx] Ondansetron ODT [Zofran ODT] 4 mg PO Q4H PRN #30 tab.rapdis 02/10/17 [Rx] OxyCODONE ER (12 HR) [OxyCONTIN] 10 mg PO Q12HR #14 tab.er.12h 02/10/17 [Rx] Allergies/Adverse Reactions: 3 Allergy/AdvReac Type Severity Reaction Status Date / Time hydrocodone [From Vicoprofen] AdvReac Intermediate Vomiting Verified 12/20/15 14 :18 benzocaine [From Cetacaine] AdvReac Unknown oral lesion Verified 12/20/15 14:18 Butamben [From Cetacaine] AdvReac Unknown oral lesion Verified 12/20/15 14:18 tetracaine [From Cetacaine] AdvReac Unknown oral lesion Verified 12/20/15 14:18 acetaminophen [From Tylenol] AdvReac Vomiting Verified 12/20/15 14:18 ibuprofen AdvReac Vomiting Verified 12/20/15 14:18 lansoprazole [From Prevacid] AdvReac Diarrhea Verified 12/20/15 14:18 tramadol AdvReac Vomiting Verified 12/20/15 14:18 General Surgery Exam Initial Vital Signs Temp Pulse Resp BP Pulse Ox 97.4 F L 94 16 131/92 95 02/08/17 10:27 02/08/17 10:27 02/08/17 10:27 02/08/17 10:27 02/08/17 10:27 - General physical appearance well developed, well nourished, no distress - Eyes PERRL, normal ocular movement - ENT normal mucosa, normocephalic - Neck trachea midline - Respiratory normal expansion, normal respiratory effort - Cardiovascular Cardiovascular exam: Present: RRR - Abdomen Abdomen general surgery: Present: bowel sounds present, soft, tender ( appropriate post op tenderness) - Incision Incision: Present: clean and dry, intact - Integumentary Integumentary general surgery: Present: warm and dry - Neurologic Present: CN 2-12 grossly intact - Musculoskeletal Present: normal gait, normal posture - Psychiatric Psychiatric general surgery: Present: A&Ox3, speech is normal Date of admission: 02/08/17 14:34 Primary care physician: PCP NONE Discharging clinician: Estefany Wheat Anticipated date of discharge: 02/09/17 - Patient Status Disposition: Home, Self-Care Condition: Good Overall status at discharge: patient is progressing back to baseline - Discharge Instructions Instructions: Laparoscopic Appendectomy (DC) Follow Up With: NONE,PCP [Primary Care Provider] - Estefany Wheat MD [Partnered Physician] - 02/25/17 9:55 am Additional Instructions: As we reviewed, vomiting is not a true allergy to ibuprofen and you are agreeable to trying ibuprofen 800 mg every 8 hours at home. Remember to take your Zofran and eat a small meal prior to taking ibuprofen or any pain medication. no lifting more than 20 lbs for 2 weeks ok to shower, no tub baths or pools for 1 week no driving until off narcotics and able to react safely ok to use ice packs - on 20 minutes./off 20 minutes - Diet and Activity Activity: increase activity as tolerated Diet: diabetic diet - Hospital Course Hospital course: Ms. Snow is a 66 year old female admitted with acute appendicitis. She underwent an uncomplicated laparoscopic appendectomy. She was started on clears and advanced. Pain initially controlled with iv was transitioned to po. She was up ambulating having appropriate bladder function. She was discharged home in stable condition. - Time Spent with Patient Total time spent providing and/or coordinating discharge services: Labs on day of discharge: Labs from last 24 hours 02/09/17 02/09/17 02/09/17 05:20 04:06 04:06 WBC 7.7 RBC 4.33 Hgb 12.7 Hct 38.8 MCV 89.6 MCH 29.3 MCHC 32.7 RDW 13.2 Plt Count 358 MPV 9.4 Immature Gran % 0.3 Seg Neutrophils % 78.5 Lymphocytes % 18.0 Monocytes % 3.1 Eosinophils % 0.0 Basophils % 0.1 Neutrophils # 6.1 Lymphocytes # 1.4 Monocytes # 0.2 Eosinophils # 0.0 Basophils # 0.0 Sodium 138 Potassium 3.7 Chloride 107 Carbon Dioxide 22 BUN 7 Creatinine 0.73 Est GFR ( Amer) > 60 Est GFR (Non-Af Amer) > 60 BUN/Creatinine Ratio 10 Glucose 140 H POC Glucose 125 H Calculated Osmolality 286 Calcium 9.2 02/09/17 00:25 WBC RBC Hgb Hct MCV MCH MCHC RDW Plt Count MPV Immature Gran % Seg Neutrophils % Lymphocytes % Monocytes % Eosinophils % Basophils % Neutrophils # Lymphocytes # Monocytes # Eosinophils # Basophils # Sodium Potassium Chloride Carbon Dioxide BUN Creatinine Est GFR ( Amer) Est GFR (Non-Af Amer) BUN/Creatinine Ratio Glucose POC Glucose 132 H Calculated Osmolality Calcium <Mi Garcia L - Last Filed: 02/10/17 11:25> Date of Encounter: 02/10/17 Time of Encounter: 10:30 - Discharge Diagnosis (1) Appendicitis, acute Priority: Primary Status: Resolved Qualifiers: Acute appendicitis type: with localized peritonitis Qualified Code(s): K35.3 - Acute appendicitis with localized peritonitis (2) Nausea & vomiting Priority: Secondary Status: Resolved Qualifiers: Vomiting type: unspecified Vomiting Intractability: intractable Qualified Code(s): R11.2 - Nausea with vomiting, unspecified (3) DVT prophylaxis Priority: Secondary Status: Resolved (4) GERD (gastroesophageal reflux disease) Priority: Secondary Status: Chronic Qualifiers: Esophagitis presence: esophagitis presence not specified Qualified Code(s) : K21.9 - Gastro-esophageal reflux disease without esophagitis General Surgery Exam Initial Vital Signs Temp Pulse Resp BP Pulse Ox 97.4 F L 94 16 131/92 95 02/08/17 10:27 02/08/17 10:27 02/08/17 10:27 02/08/17 10:27 02/08/17 10:27 - General physical appearance well developed, well nourished, no distress - Neck no masses, no bruits, trachea midline, no lymphadectomy, no venous distension - Respiratory normal expansion, normal respiratory effort, clear to percussion, clear to auscultation - Cardiovascular Cardiovascular exam: Present: RRR, 15, 16 - Abdomen Abdomen general surgery: Present: bowel sounds present, soft, non tender - Incision Incision: Present: clean and dry, intact - Neurologic Present: CN 2-12 grossly intact, normal coordination, normal sensation - Musculoskeletal Present: normal gait, normal posture - Psychiatric Psychiatric general surgery: Present: A&Ox3, appropriate, oriented to person, oriented to place, oriented to time, speech is normal, memory intact Date of admission: 02/08/17 14:34 Primary care physician: PCP NONE Discharging clinician: Estefany Garcia) Anticipated date of discharge: 02/10/17 - Patient Status Functional capacity at discharge: independent ambulation Overall status at discharge: patient is progressing back to baseline - Diet and Activity Activity: increase activity as tolerated Diet: advance to your usual diet - Hospital Course Hospital course: See above for further HPI. Her hospital course was complicated by postoperative nausea and vomiting. Scopolamine patch and increased anti- Imitrex were added which results her symptoms. She will be discharged home with Zofran, ibuprofen (although she list a minor allergy including vomiting with ibuprofen), and oxycodone ER. She is recommended to eat a small meal and take Zofran prior to medication with ibuprofen to reduce the chance of vomiting. She has also encouraged to eat a small meal prior to taking any medication. She is waiting in ambulating without difficulty. She is tolerating a full liquid diet and will be discharged charged likely this afternoon. - Time Spent with Patient Total time spent providing and/or coordinating discharge services:
[2017-02-09] MEDS ORDERED: Scopolamine Patch 1.5 MG PATCH.TD72 TD ONE (10:37)
--- NOTE | 2017-02-09 11:47 | General Surgery Progress Note ---
<Mi Garcia - Last Filed: 02/09/17 12:42> Date of Encounter: 02/09/17 Time of Encounter: 11:30 - Assessment and Plan (1) Appendicitis, acute Current Visit: Yes Status: Acute POD 1 (02/08/2017 Dr. Wheat) laproscopic appendectomy -Reports nausea and vomiting -Unable to tolerate liquids, suspect post-anesthesia n/v vs ileus Do not advance diet if vomiting +Normoactive bowel sounds -Add scopolamine patch, continue zofran and promethazine Will add one additional dose of Zofran, now -Continue PPI prophylaxis -Normal WBC, creatinine, and hgb at this time -D/c planning in the next 24-48 hours pending clinical course Qualifiers: Acute appendicitis type: with localized peritonitis Qualified Code(s): K35.3 - Acute appendicitis with localized peritonitis (2) Nausea & vomiting Current Visit: Yes Status: Acute See plan above Qualifiers: Vomiting type: unspecified Vomiting Intractability: intractable Qualified Code(s): R11.2 - Nausea with vomiting, unspecified (3) DVT prophylaxis Current Visit: Yes Status: Acute SCDs while in bed Ambulate as tolerated Heparin 5000 units SQ injections Q8H (4) GERD (gastroesophageal reflux disease) Current Visit: Yes Status: Chronic See plan above Qualifiers: Esophagitis presence: esophagitis presence not specified Qualified Code(s) : K21.9 - Gastro-esophageal reflux disease without esophagitis Subjective Patient reports: pain is less, voiding w/o difficulty, no flatus, no bowel movement, nausea, vomiting, afebrile Objective Vital Signs - Last 8 Hours Temp Pulse Resp BP Pulse Ox 02/09/17 11:19 16 100 02/09/17 10:29 97.4 F L 92 15 126/75 98 02/09/17 08:07 98 02/09/17 06:46 97.6 F 88 16 134/77 98 02/09/17 04:15 97.5 F L 90 18 123/65 99 Intake and Output 02/08/17 02/09/17 02/09/17 23:59 07:59 15:59 Intake Total 1100 / 1100 0 / 0 Output Total 420 / 420 500 / 500 400 / 400 Balance -420 / -420 600 / 600 -400 / -400 Intake: IV Fluids 1100 / 1100 0.9 % Sodium Chloride 1, 1000 / 1000 000 ML @ 100 mls/hr IVC . Q10H [facility] Rx#:[id number] Zosyn 3.375 GM In 100 / 100 Dextrose 5% (Minibag+) 100 ML 100 ML @ 25 mls/hr IVPB Q8HR [facility] Rx#: [id number] Oral 0 / 0 0 / 0 Output: Urine 400 / 400 350 / 350 400 / 400 Emesis 150 / 150 Estimated Blood Loss 20 / 20 Other: Meal NPO Percent of Meal Consumed 0% # Bowel Movements 0 0 Weight 64.1 kg Blood Glucose* 125 Patient Weight 02/09/17 23:59 Weight 64.1 kg - General physical appearance moderate distress (D/t nausea and vomiting), no pain - Eyes normal ocular movement - ENT atraumatic, normocephalic - Neck Neck exam: trachea midline - Respiratory normal expansion, normal respiratory effort, clear to auscultation - Cardiovascular Cardiovascular exam: Present: RRR - Abdomen Abdomen: Present: bowel sounds present, soft, tender (Epected postoperative tenderness) - Incision Incision: Present: clean and dry, intact - Integumentary no rash - Neurologic CN 2-12 grossly intact - Musculoskeletal normal posture - Psychiatric oriented to time, oriented to person, oriented to place - Labs 02/09/17 04:06 02/09/17 04:06 Diabetes panel 02/09/17 Range/Units 04:06 Sodium 138 (136-145) mEq/L Potassium 3.7 (3.5-4.5) mEq/L Chloride 107 (98-109) mEq/L Carbon Dioxide 22 (19-29) mEq/L BUN 7 (7-20) mg/dL Creatinine 0.73 (0.57-1.11) mg/dL Glucose 140 H (70-99) mg/dL Calcium 9.2 (8.6-10.8) mg/dL Calcium panel 02/09/17 Range/Units 04:06 Calcium 9.2 (8.6-10.8) mg/dL Pituitary panel 02/09/17 Range/Units 04:06 Sodium 138 (136-145) mEq/L Potassium 3.7 (3.5-4.5) mEq/L Chloride 107 (98-109) mEq/L Carbon Dioxide 22 (19-29) mEq/L BUN 7 (7-20) mg/dL Creatinine 0.73 (0.57-1.11) mg/dL Glucose 140 H (70-99) mg/dL Calcium 9.2 (8.6-10.8) mg/dL Adrenal panel 02/09/17 Range/Units 04:06 Sodium 138 (136-145) mEq/L Potassium 3.7 (3.5-4.5) mEq/L Chloride 107 (98-109) mEq/L Carbon Dioxide 22 (19-29) mEq/L BUN 7 (7-20) mg/dL Creatinine 0.73 (0.57-1.11) mg/dL Glucose 140 H (70-99) mg/dL Calcium 9.2 (8.6-10.8) mg/dL - VTE Reasons for not Prescribing Prophylaxis: Treatment not Indicated - Low risk for VTE Documentation of Mechanical Device: Intermittent pneumatic compression device Consult Discharge Plan - Plan Additional Instructions: no lifting more than 20 lbs for 2 weeks ok to shower, no tub baths or pools for 1 week no driving until off narcotics and able to react safely ok to use ice packs - on 20 minutes./off 20 minutes Referrals: Audrey Hackett, [employer] [Advanced Practice Nurse] - (2 weeks post op) NONE,PCP [Primary Care Provider] - <Estefany Wheat - Last Filed: 02/09/17 13:50> Date of Encounter: 02/09/17 Time of Encounter: 13:47 - Assessment and Plan (1) Appendicitis, acute Current Visit: Yes Status: Acute doing well from a surgical standpoint, pain improved she is having nausea and emesis - better on scopalmine patch continue clears as she can tolerate OOB to chair/ambulate wbc nl Qualifiers: Acute appendicitis type: with localized peritonitis Qualified Code(s): K35.3 - Acute appendicitis with localized peritonitis (2) DVT prophylaxis Current Visit: Yes Status: Acute (3) Nausea & vomiting Current Visit: Yes Status: Acute prn antiemetics, scopalamine Qualifiers: Vomiting type: unspecified Vomiting Intractability: intractable Qualified Code(s): R11.2 - Nausea with vomiting, unspecified (4) GERD (gastroesophageal reflux disease) Current Visit: Yes Status: Chronic continue PPI Qualifiers: Esophagitis presence: esophagitis presence not specified Qualified Code(s) : K21.9 - Gastro-esophageal reflux disease without esophagitis Subjective Patient reports: no new complaints, still having pain, pain is less, no flatus, no bowel movement, nausea, vomiting Objective Vital Signs - Last 8 Hours Temp Pulse Resp BP Pulse Ox 02/09/17 11:19 16 100 02/09/17 10:29 97.4 F L 92 15 126/75 98 02/09/17 08:07 98 02/09/17 06:46 97.6 F 88 16 134/77 98 Intake and Output 02/08/17 02/09/17 02/09/17 23:59 07:59 15:59 Intake Total 1100 / 1100 0 / 0 Output Total 420 / 420 500 / 500 400 / 400 Balance -420 / -420 600 / 600 -400 / -400 Intake: IV Fluids 1100 / 1100 0.9 % Sodium Chloride 1, 1000 / 1000 000 ML @ 100 mls/hr IVC . Q10H [facility] Rx#:[id number] Zosyn 3.375 GM In 100 / 100 Dextrose 5% (Minibag+) 100 ML 100 ML @ 25 mls/hr IVPB Q8HR [facility] Rx#: [id number] Oral 0 / 0 0 / 0 Output: Urine 400 / 400 350 / 350 400 / 400 Emesis 150 / 150 Estimated Blood Loss 20 / 20 Other: Meal NPO Percent of Meal Consumed 0% # Bowel Movements 0 0 Weight 64.1 kg Blood Glucose* 125 Patient Weight 02/09/17 23:59 Weight 64.1 kg - General physical appearance well nourished, no distress - Eyes PERRL, normal ocular movement - ENT normal mucosa, normocephalic - Neck Neck exam: trachea midline - Respiratory normal expansion, normal respiratory effort - Cardiovascular Cardiovascular exam: Present: RRR - Abdomen Abdomen: Present: bowel sounds present, soft, tender (Expected postoperative tenderness) - Integumentary no rash, no growths - Neurologic CN 2-12 grossly intact - Musculoskeletal normal posture - Psychiatric oriented to time, oriented to person, oriented to place, memory intact - Labs 02/09/17 04:06 02/09/17 04:06 Diabetes panel 02/09/17 Range/Units 04:06 Sodium 138 (136-145) mEq/L Potassium 3.7 (3.5-4.5) mEq/L Chloride 107 (98-109) mEq/L Carbon Dioxide 22 (19-29) mEq/L BUN 7 (7-20) mg/dL Creatinine 0.73 (0.57-1.11) mg/dL Glucose 140 H (70-99) mg/dL Calcium 9.2 (8.6-10.8) mg/dL Calcium panel 02/09/17 Range/Units 04:06 Calcium 9.2 (8.6-10.8) mg/dL Pituitary panel 02/09/17 Range/Units 04:06 Sodium 138 (136-145) mEq/L Potassium 3.7 (3.5-4.5) mEq/L Chloride 107 (98-109) mEq/L Carbon Dioxide 22 (19-29) mEq/L BUN 7 (7-20) mg/dL Creatinine 0.73 (0.57-1.11) mg/dL Glucose 140 H (70-99) mg/dL Calcium 9.2 (8.6-10.8) mg/dL Adrenal panel 02/09/17 Range/Units 04:06 Sodium 138 (136-145) mEq/L Potassium 3.7 (3.5-4.5) mEq/L Chloride 107 (98-109) mEq/L Carbon Dioxide 22 (19-29) mEq/L BUN 7 (7-20) mg/dL Creatinine 0.73 (0.57-1.11) mg/dL Glucose 140 H (70-99) mg/dL Calcium 9.2 (8.6-10.8) mg/dL - Attending Attestation I have personally performed a face to face evaluation on this patient. I have reviewed and agree with the care plan. History and Exam by me shows:
[2017-02-09] MEDS: Ondansetron 4 MG/2 ML VIAL IVP ONE ×2 (14:24→14:43)
[2017-02-09] MEDS: *HR* Heparin 5,000 UNIT/ML VIAL SQ SCH ×2 (14:43→21:00)
[2017-02-09] MEDS: *HR* OxyCODONE Immed Rel 5 MG TABLET PO PRN (14:52)
[2017-02-10] MEDS: Ipratropium/Albuterol Neb 3 ML IH SCH ×3 (04:14→11:30)
[2017-02-10] MEDS: 0.9 % Sodium Chloride 1,000 ML IVC SCH (04:35)
[2017-02-10] MEDS: Levothyroxine 25 MCG TABLET PO SCH (06:25)
[2017-02-10] MEDS: *HR* Heparin 5,000 UNIT/ML VIAL SQ SCH ×2 (06:26→14:55)
[2017-02-10] MEDS: *HR* OxyCODONE Immed Rel 5 MG TABLET PO PRN ×2 (07:34→14:23)
[2017-02-10] MEDS: Pantoprazole 40 MG VIAL IVP SCH (07:34)
[2017-02-10] MEDS ORDERED: Metoclopramide 10 MG/2 ML VIAL IVP ONE (10:38)
[2017-02-10 11:31] VITALS: BP 115/68
== END 2017-02-10 15:30 | disposition home or self-care (01) ==
LOC: EMEROO 10:23 → 3ANU 10:23
PROVIDERS: ADMIT Surgery; ATTEND Surgery

== ENCOUNTER 2019-02-20 10:54 | Inpatient (IN) ==
[~2019-02-20 10:54] MED LIST: Total Joint Mixture (50 ml) IR ONE
[2019-02-20] MEDS ORDERED: Lidocaine -MPF 2% 2 ML VIAL ONE (11:02)
[2019-02-20] MEDS ORDERED: *HR* Midazolam HCl 2 MG/2 ML VIAL ONE (11:02)
[2019-02-20] MEDS ORDERED: *HR* FentaNYL (PF) 100 MCG/2 ML VIAL ONE (11:02)
[2019-02-20] MEDS ORDERED: Propofol 500 MG/50 ML INFUS..BTL ONE ×2 (11:05→13:35)
[2019-02-20] MEDS ORDERED: CeFAZolin Syr 2,000MG/20 ML 2,000 MG/20 ML SYRINGE IVPB ONE (11:22)
[2019-02-20] MEDS ORDERED: Dexamethasone 4 MG/ML VIAL ONE (11:25)
[2019-02-20] MEDS ORDERED: Ondansetron 4 MG/2 ML VIAL ONE (11:25)
[2019-02-20] MEDS ORDERED: Famotidine 20 MG/2 ML VIAL IVP ONE (11:27)
[2019-02-20] MEDS ORDERED: Celecoxib 100 MG CAPSULE PO ONE (11:28)
[2019-02-20] MEDS ORDERED: Pregabalin 75 MG CAPSULE PO ONE (11:28)
[2019-02-20] MEDS ORDERED: Scopolamine Patch 1.5 MG PATCH.TD72 TD ONE (11:29)
[2019-02-20] MEDS ORDERED: *HR* HYDROmorphone (PF) 1 MG/ML SYRINGE IVP PRN (11:30)
[2019-02-20] MEDS ORDERED: *HR* OxyCODONE Immed Rel 5 MG TABLET PO PRN (11:30)
[2019-02-20] MEDS ORDERED: *HR* HYDROmorphone 2 MG TABLET PO PRN (11:30)
[2019-02-20] MEDS ORDERED: Ringers Solution, Lactated 1,000 ML IVC SCH (11:30)
--- NOTE | 2019-02-20 11:35 | Anesthesia Evaluation PreOp ---
Date of Encounter: 02/20/19 Time of Encounter: 11:33 - Past History Planned Operation: Robotic Revision L-TKR Cardiac History: HTN (Denies), Hyperlipidemia Pulmonary History: Former smoker (quit 2006), Asthma, COPD (mild) MUSICIAN INSTRUMENTAL History: Other (Anxiety/Depression. N/T in hand. DDD, Fibromyalgia) Other Medical History: Thyroid, GERD Anesthesia History: No Prior Anesthetic Complications, Past Anesthesia (L-TSR, R-salpingectommy, R-THR, L-knee revision 2014, revision L-TKR 2016, R-breast PNL/Bx, Lap Appy, L phlebectomy) Alcohol Use: rarely Drug use: none, prescription drug abuse (Hx Benzodiazepine abuse & abnormal Drug screens/Drug seeking behavior) Medications and Allergies Cyclobenzaprine [Flexeril] 10 mg PO TID 03/28/15 [History] Levothyroxine [Synthroid] 12.5 mcg PO DAILY 03/28/15 [History] Esomeprazole Magnesium [Nexium] 20 mg PO BID 12/20/15 [History] Atorvastatin [Lipitor] 10 mg PO HS 08/26/16 [History] hydrOXYzine HCl [Hydroxyzine HCl] 25 mg PO BID PRN 08/26/16 [History] Albuterol Sulfate [Ventolin Hfa] 2 puff IH Q4-6H PRN 12/21/16 [History] Cholecalciferol (D-3) [Vitamin D] 5,000 unit PO DAILY 02/08/17 [History] Betamethasone/Propylene Glyc [Betamethasone Dp Aug 0.05% Lot] 30 ml TP BID 02/04/18 [History] Bisacodyl [Dulcolax] 10 mg RC DAILY PRN 02/04/18 [History] Clobetasol Propionate 0.05% TP BID 02/04/18 [History] Clotrimazole [Mycelex Rima] 10 mg PO TID 02/04/18 [History] MiraLAX PO BID PRN 02/04/18 [History] OxyCODONE/APAP 5/325 [Percocet 5/325 MG] 1 each PO Q6HR PRN 3 Days #12 tablet 02/04/18 [Rx] Allergy/AdvReac Type Severity Reaction Status Date / Time hydrocodone [From Vicoprofen] AdvReac Intermediate Vomiting Verified 02/04/18 10:29 benzocaine [From Cetacaine] AdvReac Unknown oral lesion Verified 02/04/18 10:29 Butamben [From Cetacaine] AdvReac Unknown oral lesion Verified 02/04/18 10:29 tetracaine [From Cetacaine] AdvReac Unknown oral lesion Verified 02/04/18 10:29 acetaminophen [From Tylenol] AdvReac Vomiting Verified 02/04/18 10:29 ibuprofen AdvReac Vomiting Verified 02/04/18 10:29 lansoprazole [From Prevacid] AdvReac Diarrhea Verified 02/04/18 10:29 tramadol AdvReac Vomiting Verified 02/04/18 10:29 - Meds/Allergy Pre-op Review Medications Reviewed: Yes Allergies Reviewed: Yes Beta Blockers on Current Med List: No Anesthesia Results - Labs Laboratory Tests 02/16/19 02/17/19 02/17/19 16:20 13:25 13:25 WBC 9.2 Hgb 12.0 Hct 37.9 Plt Count 365 PT 10.8 INR 1.0 Sodium 140 Potassium 4.4 D Chloride 106 Carbon Dioxide 25 BUN 14 Creatinine 0.69 Est GFR (Non-Af Amer) > 60 Glucose 91 Est Mean Plasma Glucose Hemoglobin A1c 02/17/19 13:25 WBC Hgb Hct Plt Count PT INR Sodium Potassium Chloride Carbon Dioxide BUN Creatinine Est GFR (Non-Af Amer) Glucose Est Mean Plasma Glucose 137 Hemoglobin A1c 6.4 H - Imaging EKG: report reviewed (114bpm - SINUS TACHYCARDIA POSSIBLE LEFT ATRIAL ENLARGEMENT NONSPECIFIC T-WAVE ABNORMALITY ABNORMAL RHYTHM ECG Electronically Signed On 02-04-2018 16:58:27 EDT by Petros Garcia) Additional studies: Nuclear Stress Test 11/13/2016 Impression: No significant ECG changes with regadenoson. Gated LVEF = 70%. Perfusion imaging was negative for ischemia or infarct. Anesthesia Exam O2 Sat Height 1.55 m Weight 63.106 kg O2 Sat by Pulse Oximetry 99 Vital Signs Temp Pulse Resp BP Pulse Ox 98.1 F 111 18 135/80 99 02/20/19 11:18 02/20/19 11:18 02/20/19 11:18 02/20/19 11:18 02/20/19 11:18 Height: 5'3" Weight: 139# BMI = 26 NPO (# of Hours): MNoc - HEENT Pupil (Motor): Pupils equal, EOMI Mallampati: II Teeth: Edentulous Denture Type: Upper: Complete, Lower: Complete Oral Opening: Greater than 3 - MUSICIAN INSTRUMENTAL LOC: Oriented MUSICIAN INSTRUMENTAL Motor: Normal RUE, Normal LUE, Normal RLE, Normal LLE, Normal Face MUSICIAN INSTRUMENTAL Sensory: Normal: RUE, LUE, RLE, LLE, Face - Cardiac Rhythm: Regular Murmur: None - Pulmonary Breath Sounds: bilateral Clear Respiratory Effort: Symmetrical Anesthesia Assess/Plan ASA Score: 3 (Chol, Asthma/COPD, Smoker, Fibroymyalgia, Anxiety/Depression, Hx Polysubstance abuse) Level of consciousness: Cooperative, Oriented, Tranquil Anesthetic Plan: General, Regional Nerve Block, Spinal Regional Nerve Block Plan: Adductor canal Monitoring Plan: Standard Monitors Recovery Plan: PACU Anes Supervising Prov Stmt: Pt seen/evaluated, R&B Discussed, questions answered and consent obtained. Eleanor Don MD
--- NOTE | 2019-02-20 11:51 | History & Physical Report ---
Date of Encounter: 02/20/19 Time of Encounter: 11:51 24 Hour HP Update - Instructions Instructions: If the History and Physical is less than 30 days old and was completed prior to A.M. admission and or procedure and has NOT been updated on calendar day of procedure please complete this update prior to performing procedure. - Update Patient reports changes in Medical Condition: No Changes in examination, assessment, or condition: No Changes in Medication: No Preop tests/diagnostics Reviewed: Yes Surgery Remains Indicated: Yes Consent for Planned Operative Procedure(s) Verified: Yes - Pre-Operative Checklist Preoperative Checklist Indicated: No Prophylactic Antibiotic Ordered: Yes Is VTE Prophylaxis Indicated?: Yes
[2019-02-20] MEDS ORDERED: Ropivacaine/PF 0.5% 30 ML VIAL ONE (12:01)
[2019-02-20] MEDS ORDERED: Albuterol 2.5 MG/3 ML NEBULIZER IH ONE (12:06)
--- NOTE | 2019-02-20 12:53 | Anesthesia Procedures ---
Date of Encounter: 02/20/19 Time of Encounter: 12:50 Procedures: Anesthesia - Epidural/Spinal Patient ID/Chart reviewed: Yes Patient examined: Yes Consent Obtained: Yes Supplemental Oxygen Rate (L/min): 2 Site Prep: Aseptic Technique, Sterile prep and drape, Povidone-Iodine 1% Patient position: upright Amount of Local Anesthetic used: 3 Interspace Used: L4-L5 Loss of Resistance (TRANG): No Blood: No CSF: Yes Paresthesia: No Spinal Needle Gauge: 22 Spinal Dose: bupicicaine 0.5% 2.5 ml - Nerve Block Procedure Date: 02/20/19 Time: 12:50 Checklist: Correct Patient Identifier, Correct procedure, History checked Correct side: Right Blood Thinner: No Monitor Applied: EKG, BP, Pulse Oximetry Supplemental Oxygen via Nasal Cannula (L/min): 2 Indication: Post Op Analgesia (per dr jones) Pre-op Neuro Deficits: No Block Type: Other (adductor) Catheter placed: No Sterile Technique: Yes Ultrasound used: Yes Anatomy identified: Yes Visual spread of Local: Yes Neuro Stimulation: No Blood on Needle Aspiration: No Smooth Injection of Local: Yes Pain with Injection of Local: No Prep: Chlorhexadine Local: Ropivacaine (0.5% 10ml) Number of Attempts: 1 Complications: None/effective block Vitals: Vital Signs/O2 Sat/Glucose, Most Recent Temp Pulse Resp BP Pulse Ox 98.1 F 103 16 141/68 98 02/20/19 11:18 02/20/19 12:44 02/20/19 12:44 02/20/19 12:44 02/20/19 12:44
[2019-02-20] MEDS ORDERED: Tranexamic Acid 1,000 MG/10 ML VIAL ONE (12:59)
[2019-02-20] MEDS ORDERED: *HR* PHENYLEPHRINE 1,000 MCG/10 ML SYRINGE IVP ONE (13:08)
[2019-02-20] MEDS ORDERED: Ethanol\\Acetic Acid\\Na Ace\\Ben 1,000 ML IRRIG.SOLN IR ONE (13:09)
--- NOTE | 2019-02-20 14:10 | Orthopedic Operative Note ---
Date of procedure: 02/20/19 Pre-op diagnosis: Aseptic loosening left total knee Post-op diagnosis: same Procedure: Procedure: Left revision robotic-assisted Total knee replacement Estimated blood loss: 300 cc Hardware: Metal and polyethylene replacement. Erich Femur: 3 TS, 16 x 100 mm stem, 5 mm posterior medial augment Tibia: 3, 10 x 100 stem TS insert: 19 Exam Under anesthesia: 6 degrees flexion contracture 5 degree varus as calculated by the robot full flexion and no instability Procedural Notes: Aseptic loosening tibial component. Operative procedure: The patient was brought to the operating room and placed on the operating room table. After anesthesia was administered the operative knee was examined. Findings were noted in the exam under anesthesia. The operative extremity was prepped and draped in sterile surgical fashion. The patient received IV antibiotics prior to skin incision. A standard midline incision was made centered over the patella. The incision was made through the old incision, through the skin and subcutaneous tissue. A medial parapatellar tendon approach was performed. Care was taken to preserve tissue along the medial aspect of the patella. And to protect the patella tendon. The deep MCL was released off the medial tibia. The infra patella fat pad was excised. Fluid encountered was serosanguineous, Gram stain and culture obtained. The patella was everted no evidence of abnormality to the patella component. Knee was brought into flexion. Steinmann pins were placed in the tibia and the femur for the tibial and femoral arrays respectively. Checkpoints were also placed in the tibia and the femur for calculation purposes. The knee including the femur and the tibial registered. The poly-was removed, the tibial and femoral components were removed by disrupting the interface between the component and the bone with a osteotome and oscillating saw with minimal bone loss. Femoral cuts were made first with robotic assistance, these included the anterior cut posterior cuts chamfer cuts. Tibial cut was then performed with robotic assistance as well. Bone fragments were removed. The size 3 femoral guide was seated box cut was made lug holes are drilled. The size 3 tibial tray was seated and prepared with the fin cutter. Trial reduction with the 19 TS Kerline revealed extension of 0 degree, and 4 degrees varus and full flexion. No varus valgus instability. Trial reduction revealed excellent patella tracking. All trial components were removed all bony surfaces were irrigated. The Tibia was seated followed by the femur, The selected Kerline size was seated and secured. Patient had similar findings for motion and stability. The knee was closed by the PA. The knee was then irrigated out with 2 L of pulse irrigation. The extensor mechanism was closed with #2 FiberWire suture and #2 PDS suture. The subcutaneous tissue was then irrigated and closed deep with #1 PDS suture superficially with 0 PDS suture and skin was closed with skin betsy and with zip tie The patient was then placed in a sterile dressing and a postoperative brace and transferred to recovery room in stable condition. Anesthesia: spinal Surgeon: Bogdan Virgen Was there an assistant plant manager present: No Estimated blood loss (cc): 300 Condition: stable Disposition: PACU
--- NOTE | 2019-02-20 15:07 | Discharge Summary ---
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 Qualifiers: Encounter type: subsequent encounter Qualified Code(s): T84.038D - Mechanical loosening of other internal prosthetic joint, subsequent encounter; Z96.659 - Presence of unspecified artificial knee joint (2) Status post total left knee replacement Priority: Primary Status: Acute (3) Thyroid disorder Priority: Secondary Status: Chronic (4) GERD (gastroesophageal reflux disease) Priority: Secondary Status: Chronic Qualifiers: Esophagitis presence: esophagitis presence not specified Qualified Code(s): K21.9 - Gastro-esophageal reflux disease without esophagitis (5) Psoriatic arthritis Priority: Secondary Status: Chronic (6) OAB (overactive bladder) Priority: Secondary Status: Chronic (7) Acute blood loss anemia Priority: Secondary Status: Acute - Hospital Course Hospital course: Ms. Snow is a 68 year old female POD#3 s/p Left revision robotic-assisted Total knee replacement [Aseptic loosening left total knee] 02/20/19 Patient seen at bedside. Patient with no further bleeding from incision. Pressure dressing removed and Honeycomb opsite placed. A&Ox3 Ecchymosis noted along medial aspect of incision. No calf tenderness, erythema, or warmth. Neurovascularly intact b/l LE. Labwork, vitals, and medications reviewed. Pain control: Inadequate - c/o burning along incision. Participating in therapy. All questions and concerns addressed. Educated on use of incentive spirometer, ambulation, and hydration. Patient educated on post-operative restrictions and care. Addressed: 02/21: bleeding - Zipline removed with increased drainage noted to proximal incision. Incision cleansed and additional appx 20 betsy placed with significant slowing of bleeding. Continues scant bleeding to proximal and distal most aspects of incision. sterile 4x4 gauze x 10pk shingled along incision, 3 ABDs placed, and Medipore tape applied with tension for pressure dressing. JOSE with moderate compression applied. Cryocuff applied and Knee Immobilizer applied. Patient and nurse instructed to leave in place x 2 hrs. Then change pressure dressing and monitor for further bleeding. NO knee motion until reevaluation by Dr. Virgen in the morning. Hold Lovenox tonight and in the morning. Patient reports history of poor wound healing in the past requiring DARA dressings. 02/22: Bleeding improved, nearly resolved it appears with pressure dressing, hold motion, and hold Lovenox. Continue to hold, will reevaluate tomorrow morning to determine dressing orders and knee motion. 02/23: Bleeding resolved. Honeycomb placed. Leave dressing in place. Patient with acute blood loss anemia. 2 units PRBCs ordered by Dr. Virgen. Continue to hold knee motion. Knee immobilizer at all times x 2 weeks. Notify [facility] with any bleeding to incision. Decrease discharge ASA dose to reduce likelihood of bleeding, but aid in prevention of DVT. Patient course and disposition discussed with Dr. Virgen D/C plan: Signature for rehab on 02/23 after completion of blood transfusions. The patient's postoperative course was as above. Progressed from intravenous analgesic needs to oral analgesic needs only. Remained neurovascularly intact and mobilized satisfactorily. All radiographic studies were satisfactory. Patient course and disposition discussed with Dr. Virgen. Patient is discharged to rehab with plan for rehabilitation and outpatient orthopedic follow up has been arranged. - Time Spent with Patient Total time spent providing and/or coordinating discharge services: - Discharge Medications Prescriptions: New Docusate Sodium [Colace] 100 mg PO BID 5 Days #10 capsule OxyCODONE Immed Rel [Roxicodone 5 MG] 5 mg PO Q6HR PRN 5 Days #20 tablet PRN Reason: Severe Pain Aspirin Enteric Coated [Aspirin EC] 81 mg PO BID 14 Days #28 tablet.dr Continued Atorvastatin [Lipitor] 10 mg PO HS Albuterol Sulfate [Ventolin Hfa] 2 puff IH Q4-6H PRN PRN Reason: Shortness Of Breath Cyclobenzaprine [Flexeril] 10 mg PO TID PRN PRN Reason: Muscle Spasm Levothyroxine Sodium 12.54 mcg PO QAM Esomeprazole Magnesium [Nexium 24Hr] 20 mg PO DAILY Cefdinir [Omnicef] 300 mg PO BID Oxybutynin [Ditropan] 5 mg PO DAILY PRN PRN Reason: OVERACTIVE BLADDER Home Medications: Atorvastatin [Lipitor] 10 mg PO HS 08/26/16 [History] Albuterol Sulfate [Ventolin Hfa] 2 puff IH Q4-6H PRN 12/21/16 [History] Cefdinir [Omnicef] 300 mg PO BID 02/20/19 [History] Cyclobenzaprine [Flexeril] 10 mg PO TID PRN 02/20/19 [History] Docusate Sodium [Colace] 100 mg PO BID 5 Days #10 capsule 02/20/19 [Rx] Esomeprazole Magnesium [Nexium 24Hr] 20 mg PO DAILY 02/20/19 [History] Levothyroxine Sodium 12.54 mcg PO QAM 02/20/19 [History] OxyCODONE Immed Rel [Roxicodone 5 MG] 5 mg PO Q6HR PRN 5 Days #20 tablet 02/20/19 [Rx] Oxybutynin [Ditropan] 5 mg PO DAILY PRN 02/20/19 [History] Aspirin Enteric Coated [Aspirin EC] 81 mg PO BID 14 Days #28 tablet. 02/23/19 [Rx] Allergies/Adverse Reactions: Allergy/AdvReac Type Severity Reaction Status Date / Time hydrocodone [From Vicoprofen] AdvReac Intermediate Vomiting Verified 02/04/18 10:29 benzocaine [From Cetacaine] AdvReac Unknown oral lesion Verified 02/04/18 10:29 Butamben [From Cetacaine] AdvReac Unknown oral lesion Verified 02/04/18 10:29 tetracaine [From Cetacaine] AdvReac Unknown oral lesion Verified 02/04/18 10:29 acetaminophen [From Tylenol] AdvReac Vomiting Verified 02/04/18 10:29 ibuprofen AdvReac Vomiting Verified 02/04/18 10:29 lansoprazole [From Prevacid] AdvReac Diarrhea Verified 02/04/18 10:29 tramadol AdvReac Vomiting Verified 02/04/18 10:29 Date of admission: 02/20/19 Primary care physician: Jarad Garcia MD Discharging clinician: Bogdan Virgen Anticipated date of discharge: 02/23/19 - VTE Documentation of Mechanical Device: Venous foot pump, device Labs on day of discharge: Preliminary micro results at discharge 02/20/19 13:17 Wound Culture - Preliminary Left Knee - Patient Status Disposition: Transfer SNF Condition: Good Functional capacity at discharge: uses cane/walker Overall status at discharge: patient is progressing back to baseline - Discharge Instructions Follow Up With: Jarad Garcia MD [Primary Care Provider] - - Diet and Activity Activity: as per physical therapy Diet: advance to your usual diet
[2019-02-20] MEDS ORDERED: traMADol 50 MG TABLET PO PRN (15:10)
[2019-02-20] MEDS ORDERED: Sennosides 8.6 MG TABLET PO PRN (15:10)
[2019-02-20] MEDS ORDERED: MOM Conc 10 ML UD.LIQ PO PRN (15:10)
[2019-02-20] MEDS ORDERED: Gabapentin 300 MG CAPSULE PO SCH (15:10)
[2019-02-20] MEDS ORDERED: Ondansetron 4 MG/2 ML VIAL IVP PRN (15:10)
[2019-02-20] MEDS ORDERED: Naloxone 0.4 MG/ML INJ IVP PRN (15:10)
[2019-02-20] MEDS ORDERED: *HR* Promethazine 25 MG/ML VIAL IVP PRN (15:10)
[2019-02-20] MEDS ORDERED: Temazepam 15 MG CAPSULE PO PRN (15:10)
[2019-02-20 15:21] LABS: Hematocrit 33.5 % (35.3-44.9); Hemoglobin 10.8 g/dL (11.5-15.4)
--- NOTE | 2019-02-20 15:21 | Anesthesia Evaluation Post Op ---
Date of Encounter: 02/20/19 Time of Encounter: 15:20 - Vital Signs Vital Signs: Selected Entries 02/20/19 15:14 Temperature 97.4 F L Pulse Rate 94 Respiratory Rate 16 Blood Pressure 120/65 O2 Sat by Pulse Oximetry 99 - Lungs Lungs: Clear Ascult./Percussion - Airway Airway: Non-obstructed - Cardiovascular Regular Rate - Mental Status Mental Status: Alert & Oriented, Answers Appropriately - Pain Pain Scale: 0 Pain Scale used: Numeric (1 - 10) - Nausea Vomiting Nausea Vomiting: Not Present - Hydration Hydration: Ice chips, Has not voided - Discharge PostOp Status: Transfer Patient to floor
[2019-02-20] MEDS: Ascorbic Acid 500 MG TABLET PO SCH (16:42)
[2019-02-20] MEDS: *HR* OxyCODONE Immed Rel 5 MG TABLET PO PRN (16:48)
[2019-02-20] MEDS ORDERED: *HR* Enoxaparin 30 MG/0.3 ML SYRINGE SQ SCH (18:00)
[2019-02-20] MEDS: *HR* Enoxaparin 30 MG/0.3 ML SYRINGE SQ SCH (19:15)
[2019-02-20] MEDS ORDERED: Cefdinir 300 MG CAPSULE PO ONE (21:00)
[2019-02-20] MEDS: Ringers Solution, Lactated 1,000 ML IVC SCH (21:47)
[2019-02-21] MEDS: *HR* OxyCODONE Immed Rel 5 MG TABLET PO PRN ×5 (02:21→21:28)
[2019-02-21 05:08] LABS: Basophils % 0.2 %; Hematocrit 29.6 % (35.3-44.9); Hemoglobin 9.6 g/dL (11.5-15.4); Immature Granulocytes % 0.4 % (0-4); Lymphocytes % 7.7 %; Mean Corpuscular HGB Conc 32.4 g/dL (31.6-35.5); Mean Corpuscular Hemoglobin 31.5 pg (28.0-33.3); Mean Platelet Volume 9.6 fL (9.4-12.4); Monocytes # 0.5 K/mcL (0.0-1.3); Monocytes % 3.8 %; Neutrophils # 11.5 K/mcL (1.6-8.9); Platelet Count 285 K/mcL (140-400); Red Blood Count 3.05 M/mcL (3.82-4.97); Red Cell Distribution Width 12.9 % (11.5-14.5); Segmented Neutrophils % 87.9 %
[2019-02-21] MEDS: *HR* Enoxaparin 30 MG/0.3 ML SYRINGE SQ SCH (05:27)
[2019-02-21 05:33] LABS: BUN/Creatinine Ratio 22 (6-26); Blood Urea Nitrogen 14 mg/dL (8-23); Calcium 8.8 mg/dL (8.6-10.3); Carbon Dioxide 21 mEq/L (23-29); Chloride 108 mEq/L (98-107); Glucose 170 mg/dL (70-105); Osmolality,Calculated 294 (280-300); Potassium 3.9 mEq/L (3.5-5.1); Sodium 140 mEq/L (136-145); eGFR For African Americans > 60 (> 60); eGFR For Non-African Americans > 60 (> 60)
--- NOTE | 2019-02-21 06:43 | Orthopedics Progress Note ---
Date of Encounter: 02/21/19 Time of Encounter: 06:42 - Assessment and Plan (1) Acute blood loss anemia Current Visit: Yes Status: Acute Subjective Interval history: Patient was seen this morning doing well without complaints. Afebrile vital signs stable. Operative extremity: Neurovascularly intact Dressing bloody drainage, no active drainage when dressing removed, new dressing applied pressure dressing Calves nontender Assessment and plan: Continue with postoperative care hemoglobin 9.5 Objective Vital signs: Vital Signs Temp Pulse Resp BP Pulse Ox 02/21/19 02:45 98.0 F 94 18 111/60 98 02/20/19 22:29 97.4 F L 98 16 116/72 96 02/20/19 18:48 97.1 F L 91 16 117/72 98 02/20/19 15:31 97.5 F L 91 16 119/70 99 02/20/19 15:14 97.4 F L 94 16 120/65 99 02/20/19 15:04 97.4 F L 94 16 133/74 94 02/20/19 14:54 93 16 123/65 96 02/20/19 14:44 98 16 113/63 96 02/20/19 14:34 97.4 F L 92 16 131/69 98 02/20/19 12:44 103 16 141/68 98 02/20/19 12:38 106 16 121/112 100 02/20/19 12:24 104 16 127/69 100 02/20/19 11:18 98.1 F 111 18 135/80 99 Intake and Output 02/20/19 02/20/19 02/21/19 15:59 23:59 07:59 Intake Total 420 / 420 125 / 125 Output Total 300 / 300 0 / 300 0 / 0 Balance -300 / 120 420 / 120 125 / 125 Intake: IV Fluids 100 / 100 100 / 100 Ancef 2,000 MG In 0.9 % Sodium 100 / 100 100 / 100 Chloride 100 ML @ 200 mls/hr IVPB Q8HR COUNTS INCLUDE 234 BEDS AT THE [facility] Rx#:[id number] Oral 320 / 320 25 / 25 Output: Urine 0 / 0 0 / 0 Estimated Blood Loss 300 / 300 Other: Meal Dinner Percent of Meal Consumed 90% # Voids 1 Weight 63.106 kg 61.8 kg Patient Weight 02/21/19 23:59 Weight 61.8 kg - Labs CBC & BMP: 02/21/19 04:02 02/21/19 04:02 Labs: Abnormal lab results WBC 13.0 K/mcL (4.3-11.1) H 02/21/19 04:02 RBC 3.05 M/mcL (3.82-4.97) L 02/21/19 04:02 Hgb 9.6 g/dL (11.5-15.4) L 02/21/19 04:02 Hct 29.6 % (35.3-44.9) L 02/21/19 04:02 Neutrophils # 11.5 K/mcL (1.6-8.9) H 02/21/19 04:02 Chloride 108 mEq/L (98-107) H 02/21/19 04:02 Carbon Dioxide 21 mEq/L (23-29) L 02/21/19 04:02 Glucose 170 mg/dL (70-105) H 02/21/19 04:02 - VTE Documentation of Mechanical Device: Venous foot pump, device Consult Discharge Plan - Plan Referrals: Jarad Garcia MD [Primary Care Provider] -
[2019-02-21] MEDS: Ascorbic Acid 500 MG TABLET PO SCH ×2 (08:27→17:07)
[2019-02-21] MEDS: Multivit/Ca/Min/Fe/FA 1 TAB TABLET PO SCH (08:27)
[2019-02-21] MEDS: Levothyroxine 25 MCG TABLET PO SCH (08:27)
[2019-02-21] MEDS: HYDROcodone BIT/Homatropine 5 MG TABLET PO PRN ×2 (18:56→22:53)
[2019-02-22] MEDS: *HR* OxyCODONE Immed Rel 5 MG TABLET PO PRN ×5 (01:32→21:51)
[2019-02-22] MEDS: HYDROcodone BIT/Homatropine 5 MG TABLET PO PRN ×2 (05:12→09:57)
[2019-02-22 05:16] LABS: Basophils # 0.1 K/mcL (0.0-0.2); Basophils % 0.4 %; Eosinophils # 0.1 K/mcL (0.0-0.6); Eosinophils % 0.6 %; Hematocrit 27.4 % (35.3-44.9); Hemoglobin 8.9 g/dL (11.5-15.4); Immature Granulocytes % 0.3 % (0-4); Lymphocytes # 3.6 K/mcL (0.6-4.6); Lymphocytes % 30.9 %; Mean Corpuscular HGB Conc 32.5 g/dL (31.6-35.5); Mean Corpuscular Hemoglobin 30.9 pg (28.0-33.3); Mean Corpuscular Volume 95.1 fL (83.0-100.0); Mean Platelet Volume 9.3 fL (9.4-12.4); Monocytes # 0.8 K/mcL (0.0-1.3); Monocytes % 6.9 %; Neutrophils # 7.1 K/mcL (1.6-8.9); Platelet Count 268 K/mcL (140-400); Red Blood Count 2.88 M/mcL (3.82-4.97); Red Cell Distribution Width 13.2 % (11.5-14.5); Segmented Neutrophils % 60.9 %; White Blood Count 11.7 K/mcL (4.3-11.1)
[2019-02-22 05:35] LABS: BUN/Creatinine Ratio 20 (6-26); Blood Urea Nitrogen 13 mg/dL (8-23); Calcium 9.1 mg/dL (8.6-10.3); Carbon Dioxide 26 mEq/L (23-29); Chloride 107 mEq/L (98-107); Glucose 106 mg/dL (70-105); Osmolality,Calculated 291 (280-300); Potassium 3.9 mEq/L (3.5-5.1); Sodium 140 mEq/L (136-145); eGFR For African Americans > 60 (> 60); eGFR For Non-African Americans > 60 (> 60)
[2019-02-22] MEDS: Ascorbic Acid 500 MG TABLET PO SCH ×2 (07:29→17:01)
[2019-02-22] MEDS: Multivit/Ca/Min/Fe/FA 1 TAB TABLET PO SCH (07:29)
[2019-02-22] MEDS: Levothyroxine 25 MCG TABLET PO SCH (07:29)
--- NOTE | 2019-02-22 08:05 | Orthopedics Progress Note ---
Date of Encounter: 02/22/19 Time of Encounter: 08:05 - Assessment and Plan (1) Acute blood loss anemia Current Visit: Yes Status: Acute Subjective Interval history: Patient was seen this morning doing well without complaints. Afebrile vital signs stable. Operative extremity: Neurovascularly intact Dressing was changed is morning continue to monitor with pressure dressing Calves nontender Assessment and plan: Continue with postoperative care plan for discharge tomorrow Objective Vital signs: Vital Signs Temp Pulse Resp BP Pulse Ox 02/22/19 06:53 97.8 F 99 18 115/71 98 02/22/19 04:29 97.9 F 98 16 113/71 98 02/21/19 22:35 97.7 F 104 18 151/64 100 02/21/19 18:39 98.2 F 96 18 150/78 100 02/21/19 17:09 97.6 F 104 18 134/55 97 02/21/19 11:26 97.4 F L 109 18 128/71 97 Intake and Output 02/21/19 02/22/19 02/22/19 23:59 07:59 15:59 Intake Total 240 / 365 Balance 240 / 365 Intake: Oral 240 / 265 Other: Meal Dinner Percent of Meal Consumed 100% # Voids 1 - Labs CBC & BMP: 02/22/19 04:52 02/22/19 04:52 Labs: Abnormal lab results WBC 11.7 K/mcL (4.3-11.1) H 02/22/19 04:52 RBC 2.88 M/mcL (3.82-4.97) L 02/22/19 04:52 Hgb 8.9 g/dL (11.5-15.4) L 02/22/19 04:52 Hct 27.4 % (35.3-44.9) L 02/22/19 04:52 MPV 9.3 fL (9.4-12.4) L 02/22/19 04:52 Neutrophils # 11.5 K/mcL (1.6-8.9) H 02/21/19 04:02 Chloride 108 mEq/L (98-107) H 02/21/19 04:02 Carbon Dioxide 21 mEq/L (23-29) L 02/21/19 04:02 Glucose 106 mg/dL (70-105) H 02/22/19 04:52 - VTE Documentation of Mechanical Device: Venous foot pump, device Consult Discharge Plan - Plan Referrals: Jarad Garcia MD [Primary Care Provider] -
--- NOTE | 2019-02-22 14:32 | Event Note ---
Date of Encounter: 02/21/19 Time of Encounter: 12:00 POD#1 s/p Left revision robotic-assisted Total knee replacement [Aseptic loosening left total knee] 02/20/19 Patient seen at bedside. Nurses state concern re: bleeding. Patient has been participating in therapy and has been flexing knee this morning. States changed bandage at least 3 times this morning secondary to bleeding. A&Ox3 Dressing (gauze, ABDs, JOSE wrap) completely saturated with bright red blood. Upon removal of dressings active bleeding noted to proximal and distal incision. Betsy and Zipline intact. Ecchymosis noted to proximal medial aspect of incision measuring appx 2 cm diameter. No calf tenderness, erythema, or warmth. Neurovascularly intact b/l LE. Labwork, vitals, and medications reviewed. Pain control: Adequate Participating in therapy. All questions and concerns addressed. Educated on use of incentive spirometer, ambulation, and hydration. Patient educated on post-operative restrictions and care. Addressed: bleeding - Zipline removed with increased drainage noted to proximal incision. Incision cleansed and additional appx 20 betsy placed with significant slowing of bleeding. Continues scant bleeding to proximal and distal most aspects of incision. sterile 4x4 gauze x 10pk shingled along incision, 3 ABDs placed, and Medipore tape applied with tension for pressure dressing. JOSE with moderate compression applied. Cryocuff applied and Knee Immobilizer applied. Patient and nurse instructed to leave in place x 2 hrs. Then change pressure dressing and monitor for further bleeding. NO knee motion until reevaluation by Dr. Virgen in the morning. Patient course and disposition discussed with Dr. Virgen D/C plan: Signature for rehab on 02/23
--- NOTE | 2019-02-22 14:36 | Physician Discharge Referral ---
ExtendedCare Referral Info Transfer To: [facility] Provider in Charge: Dr. 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 (2) Status post total left knee replacement Priority: Primary Status: Acute (3) Thyroid disorder Priority: Secondary Status: Chronic (4) GERD (gastroesophageal reflux disease) Priority: Secondary Status: Chronic (5) Psoriatic arthritis Priority: Secondary Status: Chronic (6) OAB (overactive bladder) Priority: Secondary Status: Chronic (7) Acute blood loss anemia Priority: Secondary Status: Acute Expected Duration of Placement: less than 30 days Prognosis: Good Aware of Diagnosis: Patient Aware of Prognosis: Patient - Transfer Medications Prescriptions: Aspirin Enteric Coated [Aspirin EC] 81 mg PO BID 14 Days #28 tablet. Home Medications: Atorvastatin [Lipitor] 10 mg PO HS 08/26/16 [History] Albuterol Sulfate [Ventolin Hfa] 2 puff IH Q4-6H PRN 12/21/16 [History] Cefdinir [Omnicef] 300 mg PO BID 02/20/19 [History] Cyclobenzaprine [Flexeril] 10 mg PO TID PRN 02/20/19 [History] Docusate Sodium [Colace] 100 mg PO BID 5 Days #10 capsule 02/20/19 [Rx] Esomeprazole Magnesium [Nexium 24Hr] 20 mg PO DAILY 02/20/19 [History] Levothyroxine Sodium 12.54 mcg PO QAM 02/20/19 [History] OxyCODONE Immed Rel [Roxicodone 5 MG] 5 mg PO Q6HR PRN 5 Days #20 tablet 02/20/19 [Rx] Oxybutynin [Ditropan] 5 mg PO DAILY PRN 02/20/19 [History] Aspirin Enteric Coated [Aspirin EC] 81 mg PO BID 14 Days #28 tablet. 02/23/19 [Rx] Allergies/Adverse Reactions: Allergy/AdvReac Type Severity Reaction Status Date / Time hydrocodone [From Vicoprofen] AdvReac Intermediate Vomiting Verified 02/04/18 10:29 benzocaine [From Cetacaine] AdvReac Unknown oral lesion Verified 02/04/18 10:29 Butamben [From Cetacaine] AdvReac Unknown oral lesion Verified 02/04/18 10:29 tetracaine [From Cetacaine] AdvReac Unknown oral lesion Verified 02/04/18 10:29 acetaminophen [From Tylenol] AdvReac Vomiting Verified 02/04/18 10:29 ibuprofen AdvReac Vomiting Verified 02/04/18 10:29 lansoprazole [From Prevacid] AdvReac Diarrhea Verified 02/04/18 10:29 tramadol AdvReac Vomiting Verified 02/04/18 10:29 - Respiratory Orders Smoking Cessation: Smoking cessation has been advised. For more information, call the [place] Tobacco Quit Line at 6-612-TVCD-NOW. - Lab Orders Lab Orders: Other (include drug levels w/frequency) (H/H on 02/24 and again on 02/27 to monitor hemoglobin levels) - Ancillary Orders May use pressure relief devices daily prn, May go on JAYESH w/family/respon alliance party w/meds at nurse discretion PRN, May consult with Dentist, Lens Matcher, Fur Grader PRN - Advance Directives Code Status: Full Code - Mobility Orders Chair, Ambulate - Rehabiliation Orders Rehab Potential: Good Rehab Orders: Evaluation for Physical Therapy, Evaluation for Occupational Therapy Other: Total Knee replacement Precautions x 6 weeks Apply cold therapy wrap 3-6x/day for 20 minutes at a time. Encourage ambulation throughout the day and incentive spirometer 10x/hour. Elevate affected extremity above heart as tolerated. Brace: Wear knee immobilizer at ALL TIMES - NO KNEE MOTION Weightbearing as tolerated. Opsite placed. Keep dressing intact until first follow up appointment. If greater than 50% saturated or dressing gets wet/soiled, notify office, remove dressing and place occlusive dressing back in place. Leave Drums intact. Opsite dressing is water resistant, not water-proof. OK to shower, but do not get dressing wet. - Treatments Skin tear care topically daily PRN per policy - Diet Orders Regular CERTIFICATION: I certify that the transfer of the above named patient to an Extended Care Facility is necessary for the continuing treatment of the diagnosis listed. The above information is true and accurate reflection of patient's current condition. Confidential - Redisclosure prohibited without a patient's written consent.
--- NOTE | 2019-02-22 14:36 | Event Note ---
Date of Encounter: 02/22/19 Time of Encounter: 11:30 POD#2 s/p Left revision robotic-assisted Total knee replacement [Aseptic loosening left total knee] 02/20/19 Patient seen at bedside. Nurses state concern re: continued bleeding. Patient participated in therapy this morning in knee immobilizer. A&Ox3 Dressing (gauze, ABDs, JOSE wrap) with scant serosanguinous drainage noted along incision. Betsy intact. Ecchymosis noted to proximal medial aspect of incision measuring appx 2 cm diameter. No calf tenderness, erythema, or warmth. Neurovascularly intact b/l LE. Labwork, vitals, and medications reviewed. Pain control: Adequate Participating in therapy. All questions and concerns addressed. Educated on use of incentive spirometer, ambulation, and hydration. Patient educated on post-operative restrictions and care. Addressed: 02/21: bleeding - Zipline removed with increased drainage noted to proximal incision. Incision cleansed and additional appx 20 betsy placed with significant slowing of bleeding. Continues scant bleeding to proximal and distal most aspects of incision. sterile 4x4 gauze x 10pk shingled along incision, 3 ABDs placed, and Medipore tape applied with tension for pressure dressing. JOSE with moderate compression applied. Cryocuff applied and Knee Immobilizer applied. Patient and nurse instructed to leave in place x 2 hrs. Then change pressure dressing and monitor for further bleeding. NO knee motion until reevaluation by Dr. Virgen in the morning. Hold Lovenox tonight and in the morn ing. Patient reports history of poor wound healing in the past requiring DARA dressings. 02/22: Bleeding improved, nearly resolved it appears with pressure dressing, hold motion, and hold Lovenox. Continue to hold, will reevaluate tomorrow morning to determine dressing orders and knee motion. Patient course and disposition discussed with Dr. Virgen D/C plan: Signature for rehab on 02/23
[2019-02-22] MEDS: *HR* Enoxaparin 30 MG/0.3 ML SYRINGE SQ SCH (17:02)
[2019-02-23] MEDS: *HR* OxyCODONE Immed Rel 5 MG TABLET PO PRN ×4 (04:43→18:29)
[2019-02-23 05:58] LABS: Basophils % 0.3 %; Eosinophils # 0.3 K/mcL (0.0-0.6); Eosinophils % 3.3 %; Hematocrit 24.6 % (35.3-44.9); Hemoglobin 7.9 g/dL (11.5-15.4); Immature Granulocytes % 0.3 % (0-4); Lymphocytes # 2.9 K/mcL (0.6-4.6); Lymphocytes % 31.9 %; Mean Corpuscular HGB Conc 32.1 g/dL (31.6-35.5); Mean Corpuscular Hemoglobin 30.9 pg (28.0-33.3); Mean Corpuscular Volume 96.1 fL (83.0-100.0); Mean Platelet Volume 9.3 fL (9.4-12.4); Monocytes # 0.6 K/mcL (0.0-1.3); Monocytes % 6.5 %; Neutrophils # 5.3 K/mcL (1.6-8.9); Platelet Count 243 K/mcL (140-400); Red Blood Count 2.56 M/mcL (3.82-4.97); Red Cell Distribution Width 13.2 % (11.5-14.5); Segmented Neutrophils % 57.7 %; White Blood Count 9.2 K/mcL (4.3-11.1)
[2019-02-23 06:15] LABS: BUN/Creatinine Ratio 17 (6-26); Blood Urea Nitrogen 10 mg/dL (8-23); Calcium 8.7 mg/dL (8.6-10.3); Carbon Dioxide 25 mEq/L (23-29); Chloride 104 mEq/L (98-107); Glucose 112 mg/dL (70-105); Osmolality,Calculated 278 (280-300); Potassium 3.5 mEq/L (3.5-5.1); Sodium 134 mEq/L (136-145); eGFR For African Americans > 60 (> 60); eGFR For Non-African Americans > 60 (> 60)
[2019-02-23] MEDS: *HR* Enoxaparin 30 MG/0.3 ML SYRINGE SQ SCH (06:17)
[2019-02-23] MEDS ORDERED: Furosemide 20 MG/2 ML VIAL IVP ONE (06:18)
[2019-02-23] MEDS: Ringers Solution, Lactated 1,000 ML IVC SCH ×2 (07:13→07:14)
[2019-02-23] MEDS: Multivit/Ca/Min/Fe/FA 1 TAB TABLET PO SCH (08:54)
[2019-02-23] MEDS: Ascorbic Acid 500 MG TABLET PO SCH ×2 (08:55→16:12)
[2019-02-23] MEDS: Levothyroxine 25 MCG TABLET PO SCH (08:55)
[2019-02-23] MEDS ORDERED: 0.9 % Sodium Chloride 250 ML ONE ×2 (09:55→13:24)
[2019-02-23 18:28] VITALS: BP 127/57
== END 2019-02-23 18:38 | DRG 467 ==
LOC: SAMDAY 10:54 → 3NENU 15:09
PROVIDERS: ADMIT Orthopaedic Surgery; ATTEND Orthopaedic Surgery

== ENCOUNTER 2019-08-07 06:11 | Inpatient (IN) ==
[2019-08-07] MEDS ORDERED: CeFAZolin Syr 3,000MG/30 ML 3,000 MG/30 ML SYRINGE IVPB ONE (06:39)
[2019-08-07] MEDS ORDERED: Albuterol 2.5 MG/3 ML NEBULIZER IH PRN (06:39)
[2019-08-07] MEDS ORDERED: Ringers Solution, Lactated 1,000 ML IVC SCH ×2 (06:45→10:55)
[2019-08-07] MEDS ORDERED: CeFAZolin Syr 2,000MG/20 ML 2,000 MG/20 ML SYRINGE IVPB ONE (06:51)
[2019-08-07] MEDS ORDERED: *HR* FentaNYL (PF) 100 MCG/2 ML VIAL ONE (07:36)
[2019-08-07] MEDS ORDERED: *HR* Propofol 200 MG/20 ML VIAL IVP ONE (07:36)
[2019-08-07] MEDS ORDERED: *HR* Succinylcholine 200 MG/10 ML VIAL IVP ONE (07:37)
[2019-08-07] MEDS ORDERED: Dexamethasone 4 MG/ML VIAL ONE ×2 (07:38→07:43)
[2019-08-07] MEDS ORDERED: Ondansetron 4 MG/2 ML VIAL ONE (07:38)
[2019-08-07] MEDS ORDERED: Lidocaine -MPF 2% 2 ML VIAL ONE (07:38)
[2019-08-07] MEDS ORDERED: ROPIVACAINE/PF/NS 0.25% 1 EACH SYRINGE INTRAART ONE (07:44)
[2019-08-07] MEDS ORDERED: Ropivacaine/PF 0.5% 30 ML VIAL ONE (07:44)
[2019-08-07] MEDS ORDERED: *HR* Midazolam HCl 2 MG/2 ML VIAL ONE (07:46)
[2019-08-07] MEDS ORDERED: Ondansetron 4 MG/2 ML VIAL IVP ONE (08:06)
[2019-08-07] MEDS ORDERED: Morphine Sulfate 2 MG/ML SYRINGE IVP PRN (08:06)
[2019-08-07] MEDS ORDERED: *HR* FentaNYL (PF) 100 MCG/2 ML VIAL IVP PRN (08:06)
[2019-08-07] MEDS ORDERED: Ethanol\\Acetic Acid\\Na Ace\\Ben 1,000 ML IRRIG.SOLN IR ONE (08:41)
[2019-08-07] MEDS ORDERED: *HR* PHENYLEPHRINE 1,000 MCG/10 ML SYRINGE IVP ONE (09:01)
[2019-08-07 10:42] LABS: Hematocrit 35.9 % (35.3-44.9); Hemoglobin 11.3 g/dL (11.5-15.4)
[2019-08-07] MEDS ORDERED: Ondansetron 4 MG/2 ML VIAL IVP PRN (10:55)
[2019-08-07] MEDS ORDERED: Sennosides 8.6 MG TABLET PO PRN (10:55)
[2019-08-07] MEDS ORDERED: Naloxone 0.4 MG/ML INJ IVP PRN (10:55)
[2019-08-07] MEDS ORDERED: MOM Conc 10 ML UD.LIQ PO PRN (10:55)
[2019-08-07] MEDS ORDERED: Acetaminophen 325 MG TABLET PO PRN (10:55)
[2019-08-07] MEDS: Levothyroxine 25 MCG TABLET PO SCH (12:21)
[2019-08-07] MEDS: Cholecalciferol (D-3) 1,000 UNIT (25MCG) TABLET PO SCH ×2 (12:24→12:26)
[2019-08-07] MEDS: *HR* Enoxaparin 30 MG/0.3 ML SYRINGE SQ SCH (17:03)
[2019-08-07] MEDS: ceFAZolin 2,000 MG in 0.9 % Sodium Chloride 100 ML IVPB SCH ×2 (17:03→23:17)
[2019-08-07] MEDS ORDERED: *HR* Enoxaparin 30 MG/0.3 ML SYRINGE SQ SCH (18:00)
[2019-08-07] MEDS: *HR* OxyCODONE Immed Rel 5 MG TABLET PO PRN (22:35)
[2019-08-08 01:37] LABS: Hematocrit 26.9 % (35.3-44.9)
[2019-08-08 01:46] LABS: BUN/Creatinine Ratio 16 (6-26); Blood Urea Nitrogen 12 mg/dL (8-23); Calcium 8.5 mg/dL (8.6-10.3); Carbon Dioxide 23 mEq/L (23-29); Chloride 110 mEq/L (98-107); Glucose 125 mg/dL (70-105); Hemoglobin 8.9 g/dL (11.5-15.4); Osmolality,Calculated 289 (280-300); Sodium 139 mEq/L (136-145); eGFR For African Americans > 60 (> 60); eGFR For Non-African Americans > 60 (> 60)
[2019-08-08] MEDS: Levothyroxine 25 MCG TABLET PO SCH (05:11)
[2019-08-08] MEDS: *HR* OxyCODONE Immed Rel 5 MG TABLET PO PRN ×2 (05:11→22:14)
[2019-08-08] MEDS: *HR* Enoxaparin 30 MG/0.3 ML SYRINGE SQ SCH ×2 (05:11→18:20)
[2019-08-08] MEDS: *HR* OxyCODONE/APAP 5/325 TABLET PO PRN ×2 (09:08→18:17)
[2019-08-08] MEDS: Cholecalciferol (D-3) 1,000 UNIT (25MCG) TABLET PO SCH (09:10)
[2019-08-08] MEDS: Ketorolac 30 MG/ML VIAL IVP PRN (09:11)
[2019-08-09] MEDS: *HR* OxyCODONE Immed Rel 5 MG TABLET PO PRN ×3 (02:23→21:34)
[2019-08-09] MEDS: Levothyroxine 25 MCG TABLET PO SCH (05:09)
[2019-08-09] MEDS: *HR* Enoxaparin 30 MG/0.3 ML SYRINGE SQ SCH ×2 (05:09→16:36)
[2019-08-09] MEDS: Ketorolac 30 MG/ML VIAL IVP PRN (05:12)
[2019-08-09 07:00] LABS: Hemoglobin 8.9 g/dL (11.5-15.4)
[2019-08-09 07:21] LABS: BUN/Creatinine Ratio 20 (6-26); Blood Urea Nitrogen 10 mg/dL (8-23); Calcium 8.5 mg/dL (8.6-10.3); Carbon Dioxide 24 mEq/L (23-29); Chloride 107 mEq/L (98-107); Glucose 100 mg/dL (70-105); Osmolality,Calculated 283 (280-300); Potassium 3.6 mEq/L (3.5-5.1); Sodium 137 mEq/L (136-145); eGFR For African Americans > 60 (> 60); eGFR For Non-African Americans > 60 (> 60)
[2019-08-09] MEDS: Cholecalciferol (D-3) 1,000 UNIT (25MCG) TABLET PO SCH (08:07)
[2019-08-10] MEDS: *HR* OxyCODONE Immed Rel 5 MG TABLET PO PRN ×2 (01:46→13:14)
[2019-08-10] MEDS: Ketorolac 30 MG/ML VIAL IVP PRN ×2 (01:52→02:07)
[2019-08-10] MEDS: Levothyroxine 25 MCG TABLET PO SCH (06:12)
[2019-08-10] MEDS: *HR* Enoxaparin 30 MG/0.3 ML SYRINGE SQ SCH (06:12)
[2019-08-10] MEDS: Cholecalciferol (D-3) 1,000 UNIT (25MCG) TABLET PO SCH (09:19)
[2019-08-10 09:49] VITALS: BP 136/70
== END 2019-08-10 13:15 | DRG 483 ==
LOC: SAMDAY 06:11 → 3NENU 11:36
PROVIDERS: ADMIT Orthopaedic Surgery; ATTEND Orthopaedic Surgery

== ENCOUNTER 2022-03-18 06:08 | Observation (INO) ==
[2022-03-18] MEDS ORDERED: CeFAZolin Syr 2,000MG/20 ML 2,000 MG/20 ML SYRINGE IVPB ONE (06:19)
[2022-03-18] MEDS ORDERED: Ringers Solution, Lactated 1,000 ML IVC SCH ×2 (06:30→14:27)
[2022-03-18] MEDS ORDERED: *HR* OxyCODONE Immed Rel 5 MG TABLET PO ONE (07:00)
[2022-03-18] MEDS ORDERED: Acetaminophen IV 1,000 MG/100 ML BAG IVPB ONE (07:00)
[2022-03-18] MEDS ORDERED: tiZANidine 4 MG TABLET PO ONE (07:00)
[2022-03-18] MEDS ORDERED: Acetaminophen IV 1,000 MG/100 ML BAG IVPB PRN (07:31)
[2022-03-18] MEDS ORDERED: *HR* FentaNYL (PF) 100 MCG/2 ML VIAL IVP PRN (07:31)
[2022-03-18] MEDS ORDERED: *HR* Labetalol 20 MG/4 ML SYRINGE IVP PRN (07:31)
[2022-03-18] MEDS ORDERED: Ipratropium Neb 0.5 MG NEBULIZER IH PRN (07:31)
[2022-03-18] MEDS ORDERED: Ondansetron 4 MG/2 ML VIAL IVP PRN ×2 (07:31→14:27)
[2022-03-18] MEDS ORDERED: Albuterol 2.5 MG/3 ML NEBULIZER IH PRN (07:31)
[2022-03-18] MEDS ORDERED: *HR* OxyCODONE Immed Rel 5 MG TABLET PO PRN (07:31)
[2022-03-18] MEDS ORDERED: Dexmedetomidine HCl 400 MCG/100 ML MLS IVC ONE (07:32)
[2022-03-18] MEDS ORDERED: *HR* Remifentanil 2 MG VIAL IVP ONE (07:37)
[2022-03-18] MEDS ORDERED: *HR* FentaNYL (PF) 100 MCG/2 ML VIAL ONE (07:37)
[2022-03-18] MEDS ORDERED: *HR* Propofol 200 MG/20 ML VIAL IVP ONE (07:37)
[2022-03-18] MEDS ORDERED: Ondansetron 4 MG/2 ML VIAL ONE (07:38)
[2022-03-18] MEDS ORDERED: Lidocaine -MPF 2% 2 ML VIAL ONE ×2 (07:38→11:28)
[2022-03-18] MEDS ORDERED: *HR* Succinylcholine 200 MG/10 ML VIAL IVP ONE (07:38)
[2022-03-18] MEDS ORDERED: Bacitracin OINT PKT TP ONE (07:41)
[2022-03-18] MEDS ORDERED: Vancomycin 1,000 MG VIAL ONE (07:42)
[2022-03-18] MEDS ORDERED: *HR* Phenylephrine 10 MG/ML VIAL ONE (07:48)
[2022-03-18] MEDS ORDERED: Heparin 1,000 UNITS/500 mL 500 ML ONE (07:53)
[2022-03-18] MEDS ORDERED: *HR* HYDROMORPHONE 2 MG/ML VIAL ONE (11:53)
[2022-03-18] MEDS ORDERED: Pregabalin 75 MG CAPSULE PO ONE (13:00)
[2022-03-18] MEDS ORDERED: tiZANidine 4 MG TABLET PO SCH (13:00)
[2022-03-18] MEDS: *HR* HYDROmorphone PF 0.5 MG/0.5 ML SYRINGE IVP PRN ×2 (13:01→13:12)
[2022-03-18] MEDS ORDERED: Acetaminophen 325 MG TABLET PO PRN (14:27)
[2022-03-18] MEDS ORDERED: Naloxone 0.4 MG/ML INJ IVP PRN (14:27)
[2022-03-18] MEDS: CeFAZolin 2 GM/120 ML BAG IVPB SCH (18:51)
[2022-03-18] MEDS: *HR* OxyCODONE Immed Rel 5 MG TABLET PO PRN (19:44)
[2022-03-18] MEDS: Clobetasol Propionate 0.05% 15 GM Cream Tube TP SCH (19:45)
[2022-03-18] MEDS ORDERED: diazePAM 10 MG TABLET PO PRN (20:33)
[2022-03-19] MEDS: *HR* OxyCODONE Immed Rel 5 MG TABLET PO PRN ×5 (00:15→21:34)
[2022-03-19] MEDS: CeFAZolin 2 GM/120 ML BAG IVPB SCH (00:18)
[2022-03-19] MEDS: Levothyroxine 25 MCG TABLET PO SCH (05:17)
[2022-03-19] MEDS: Cholecalciferol (D-3) 1,000 UNIT (25MCG) TABLET PO SCH (08:18)
[2022-03-19] MEDS: Multivit/Ca/Min/Fe/FA 1 TAB TABLET PO SCH (08:19)
[2022-03-19] MEDS: Clobetasol Propionate 0.05% 15 GM Cream Tube TP SCH ×2 (08:21→21:32)
[2022-03-20 02:54] VITALS: PULSE 104
[2022-03-20] MEDS: *HR* OxyCODONE Immed Rel 5 MG TABLET PO PRN ×3 (03:13→12:47)
[2022-03-20] MEDS: Levothyroxine 25 MCG TABLET PO SCH (05:18)
[2022-03-20 05:43] VITALS: TEMP 97.7; O2SAT 96
[2022-03-20] MEDS: Multivit/Ca/Min/Fe/FA 1 TAB TABLET PO SCH (08:33)
[2022-03-20] MEDS: Cholecalciferol (D-3) 1,000 UNIT (25MCG) TABLET PO SCH (08:33)
[2022-03-20 08:37] VITALS: BP 128/87
[2022-03-20] MEDS: Clobetasol Propionate 0.05% 15 GM Cream Tube TP SCH (11:37)
== END 2022-03-20 13:00 | disposition home or self-care (01) ==
LOC: SDCAOSI 06:08 → 4WAOSI 06:08
PROVIDERS: ADMIT Orthopaedic Surgery Orthopaedic Surgery of the Spine; ATTEND Orthopaedic Surgery Orthopaedic Surgery of the Spine